=== PATIENT | male | born 1940 | race Caucasian/White ===

== ENCOUNTER 2016-06-17 17:41 | Inpatient (IN) | payer MEDICARE, MEDICAID ==
[2016-06-17] VITALS (7 sets, daily range): BP systolic 64–144; BP diastolic 37–76
[~2016-06-17] VITALS: Ht 175.3 cm; Wt 72.1 kg
[~2016-06-17 17:41] MED LIST: ALBU2.5V13 IH; ASPI81TA2 PO; BISA10SU8 RC; DOCU-270 PO; FURO20TA4 PO; HYDR-3326 PO; IPRA0.2S9 IH; MAG30ORA PO; MAGN400O6 PO; NA P133E RC; OLAN2.5T3 PO; SIMV10TA6 PO; TYL2T PO
--- NOTE | 2016-06-17 17:41 | NUR ---
bb from [facility] for [facility] since this am. pt lethargic, alert, follows commands. rt at bedside. placed in gown and monitor. pending md medina.
[2016-06-17 18:03] LABS: BASOPHILS # (AUTO) 0.1 /CMM (0.0-0.2); BASOPHILS % (AUTO) 0.7 % (0.0-2.0); EOSINOPHILS # (AUTO) 0.2 /CMM (0.0-0.7); EOSINOPHILS % (AUTO) 1.8 % (0.0-6.0); HEMATOCRIT 44 % (39-51); HEMOGLOBIN 14.2 g/dL (13.5-17.5); LYMPHOCYTES # (AUTO) 2.1 /CMM (0.8-4.8); LYMPHOCYTES % (AUTO) 20.4 % (20.0-44.0); MEAN CORPUSCULAR HEMOGLOBIN 27 PG (26.0-33.0); MEAN CORPUSCULAR HGB CONC 32 g/dl (31.0-36.0); MEAN CORPUSCULAR VOLUME 82 fL (80-96); MONOCYTES # (AUTO) 0.8 /CMM (0.1-1.30); MONOCYTES % (AUTO) 7.8 % (2.0-12.0); NEUTROPHILS % (AUTO) 69.3 % (43.0-81.0); PLATELET COUNT (AUTO) 250 /CMM (150-450); RDW COEFFICIENT OF VARIATION 15.4 (11.5-15.0); RED BLOOD CELL COUNT(AUTO) 5.34 MIL/uL (4.5-6.0); WHITE BLOOD COUNT (AUTO) 10.2 K/uL (4.3-11.0)
[2016-06-17 18:13] LABS: CALCIUM, SERUM 8.3 mg/dL (8.5-10.1); CREATININE 1.6 mg/dL (0.6-1.3); POTASSIUM 4.8 mmol/L (3.5-5.1)
[2016-06-17 18:16] LABS: INR 1.23 (0.87-1.13); PROTHROMBIN TIME 12.9 SECS (9.5-12.7)
--- NOTE | 2016-06-17 18:18 | NUR ---
RT NOTE PT PLACED ON BIPAP PER MD ORDER. ALARMS SET PER PROTOCOL AND AUDIBLE. PLUGGED IN TO RED OUTLET. AMBU BAG AT BEDSIDE. Addendum: 06/17/16 at 1819 by JAMES CASTANO RT Amended: Links added.
--- NOTE | 2016-06-17 18:18 | NUR ---
pt placed on bipap 15/5, rr 16, 60% fio2. pt tolerating well.
[2016-06-17 18:21] LABS: TROPONIN I 0.018 ng/mL (0.00-0.056)
[2016-06-17 18:26] LABS: ALBUMIN 3.2 g/dL (3.4-5.0); BILIRUBIN,DIRECT 0.2 mg/dL (0.0-0.2); BILIRUBIN,TOTAL 0.8 mg/dL (0.2-1.0); TOTAL PROTEIN, SERUM 7.9 g/dL (6.4-8.2)
--- NOTE | 2016-06-17 18:28 | NUR ---
urine obtained sent to lab
[2016-06-17 18:33] LABS: LACTIC ACID 0.5 mmol/L (0.4-2.0)
[2016-06-17 18:51] LABS: APPEARANCE,URINE Clear (CLEAR); BILIRUBIN,URINE Negative (NEGATIVE); BLOOD, URINE Negative Ery/uL (NEGATIVE); COLOR,URINE Yellow (YELLOW); KETONES,URINE Negative (NEGATIVE); LEUKOCYTE ESTERASE ,URINE Negative (NEGATIVE); NITRITE, URINE Negative (NEGATIVE); PROTEIN,URINE 100 mg/dl (NEGATIVE); UGLUCOSE Negative (NEGATIVE); UROBILINOGEN,URINE 0.2 EU/dL (0.2)
[2016-06-17 19:13] LABS: ADD URINE CULTURE NO; BACTERIA,URINE Rare /HPF (None Seen); RBC,URINE 0-2 /HPF (0-2); WBC,URINE 1-2/HPF /HPF (0-3)
[2016-06-17 19:14] LABS: MUCUS,URINE Few /LPF (None Seen); SQUAMOUS EPITHELIAL CELL,UR Few /HPF (None Seen); URINE AMORPHOUS URATE Many /HPF (None Seen)
[2016-06-17] MEDS ORDERED: FUROSEMIDE 40 MG/4 ML VIAL IV ONE (19:30)
[2016-06-17] MEDS ORDERED: FUROSEMIDE 40 MG/4 ML VIAL ONE (19:44)
--- NOTE | 2016-06-17 19:50 | NUR ---
lasix 40mg given on the left hand g20.
[2016-06-17 20:16] LABS: ABG BASE EXCESS -2.8 mmol/L; ABG PCO2 95.3 mmHg (35.0-45.0); ABG PO2 93.4 mmHg (75.0-100.0); ABG TOTAL HEMOGLOBIN 14.6 G/dL (13.5-18.0); AaDO2 229.6 mmHg; COHb 1.9 % (0.5-1.5); MetHb 0.5 % (0.0-1.5); O2Hb 92.7 % (94.0-97.0); PEEP,BG 5 cm H2O; SITE, ABG Right Radial
--- NOTE | 2016-06-17 20:20 | NUR ---
DR GOMES ON THE PHONE WITH PT'S NEXT OF KIN.
--- NOTE | 2016-06-17 20:25 | NUR ---
ER MD ORDERED TO PREP PT FOR INTUBATION. RT PAGED FOR INTUBATION.
--- NOTE | 2016-06-17 20:31 | NUR ---
ER MD AT BEDSIDE MIREYA RT, DANA GEE, DANA CARPENTER, MYSELF AT BEDSIDE FOR INTUBATION.
--- NOTE | 2016-06-17 20:38 | NUR ---
INTUBATION TIME, SEE INTUBATION INTERVENTION.
[2016-06-17] MEDS: PROPOFOL 100 ML IV PRN (20:45)
--- NOTE | 2016-06-17 20:45 | NUR ---
AND MD GOMES AT BEDSIDE, PT INTUBATED WITH 7.0 @24CM WITH THE FOLLOWING SETTINGS AC 18R 500VT 100%O2 +5 PEEP, BILATERAL BREATH SOUNDS AND GOOD COLOR CHANGE ON CAP. BILATERAL MOVEMENT PRESENT WELL. PT CUFF INFLATED TO MOV, VENT ALARMS ARE SET AND VENT PLUGGED INTO RED OUTLET. PT SPUTUM SAMPLE WAS COLLECTED AND LAB WAS NOTIFIED. PT PRODUCED LARGE AMOUNTS OF THICK SHORE SECRETIONS. PT TOLERATING SETTINGS NO ADVERSE REACTIONS NOTED. ABG PENDING Addendum: 06/17/16 at 2136 by KENDRICK SMALL Amended: Links added.
--- NOTE | 2016-06-17 20:45 | NUR ---
PT INTUBATED BY DR. GOMES, ET-TUBE 7.0FR, 24CM AT THE LIP LINE WITH (+) COLOR CHANGE ON THE CO2 DETECTOR WITH BILATERAL EQUAL BREATH SOUNDS. PT TOLERATED PROCEDURE WELL. RT TO PLACE PT ON VENT PER ER MD ORDER.
--- NOTE | 2016-06-17 20:47 | NUR ---
RT PLACE PT ON VENT, VENT SETTINGS AC-18, TV-500, FIO2-100%, PPEEP-5. ORAL G-TUBE 18FR INSERTED, F/C 16FR INSERTED PER ER MD ORDER.
--- NOTE | 2016-06-17 21:10 | NUR ---
POST INUBATION CXR DONE.
[2016-06-17] MEDS ORDERED: PIPERACILLIN /TAZOBACTAM 3.375 G in IV D5W 50 ML IV SCH (21:30)
--- NOTE | 2016-06-17 21:36 | NUR ---
PT TOLERATING CURRENT VENT SETTING AT THIS TIME. PENDING HOSPITAL ADMISSION.
--- NOTE | 2016-06-17 21:49 | NUR ---
REPORT CALLED TO DRYER OPERATORDANA PORRAS. ER MD AT BEDSIDE TALKING TO PT FAMILY MEMBERS.
[2016-06-17] MEDS ORDERED: MAGNESIUM HYDROXIDE 30 ML UDC PO PRN (22:00)
[2016-06-17] MEDS ORDERED: ONDANSETRON HCL/PF 4 MG/2 ML VIAL IVP PRN (22:00)
[2016-06-17] MEDS ORDERED: IPRATROPIUM BROMIDE 14 GM INHALER (or 12.9 GM) IH PRN (22:00)
[2016-06-17] MEDS ORDERED: ZOLPIDEM TARTRATE 5 MG TABLET PO PRN (22:00)
[2016-06-17] MEDS ORDERED: IV NS 0.9% 1,000 ML IV PRN (22:00)
[2016-06-17] MEDS ORDERED: Z GUARD REMEDY 2 OZ OINT TP PRN (22:00)
[2016-06-17] MEDS ORDERED: ETOMIDATE 2 MG/ML VIAL IV ONE (22:30)
[2016-06-17] MEDS ORDERED: SUCCINYLCHOLINE CHLORIDE 20 MG/ML VIAL IV ONE (22:30)
[2016-06-17] MEDS ORDERED: PANTOPRAZOLE 40 MG VIAL ONE (22:49)
[2016-06-17] MEDS ORDERED: HEPARIN SODIUM, PORCINE 5000 UNITS/1 ML VIAL ONE (22:50)
[2016-06-17 23:22] LABS: ABG BASE EXCESS 0.7 mmol/L; ABG OXYGEN SATURATION 98.9 % (92.0-98.5); ABG PCO2 82.2 mmHg (35.0-45.0); ABG PO2 217.4 mmHg (75.0-100.0); ABG TOTAL HEMOGLOBIN 14.5 G/dL (13.5-18.0); AaDO2 413.4 mmHg; COHb 1.6 % (0.5-1.5); MetHb 0.9 % (0.0-1.5); O2Hb 96.4 % (94.0-97.0); PEEP,BG 5 cm H2O; SITE, ABG Right Radial; VT, ABG 500 mL
[2016-06-17] MEDS: PANTOPRAZOLE 40 MG VIAL IV SCH (23:32)
[2016-06-17] MEDS: HEPARIN SODIUM, PORCINE 5000 UNITS/1 ML VIAL SQ SCH (23:33)
--- NOTE | 2016-06-17 23:51 | NUR ---
FINANCE PROFESSOR. ADMISSION.RECWEIVED THE PT FROMER VIA JASON.DIAGNOSED WITHRESPIRATORY FAILURE, ORALLY INTUBATED. SEDATED WITH DIPRIVAN.ETT #7, LIP 24CMS,AC 22,TV 500, PEEP 5. SAT 98 %.NOACUTE DISTRESS NOTED.IV RT AC 14G DIPRIVAN 20MCG/KG/MIN.OGT INTACT.NPO.DANIELLE SOFT WRIST RESTRAINT.CHECKED AND RELEASED.NOINJUEY OR REDNESS NOTED.BRANCH STORE MANAGER SHOWING A FLUTTER FC PATENT.HOB ELEAVTED.AFEBRILE. WILL CONTINUE TO MONITOR VITALS.
--- NOTE | 2016-06-17 23:58 | NUR ---
CURLING MACHINE OPERATOR.POST INTUBATION ABG DONE. REJI KIRAN SO THE RESULT. CHANGED VENT SETTINGS.
[2016-06-18] VITALS (83 sets, daily range): BP systolic 59–182; BP diastolic 34–92
--- NOTE | 2016-06-18 00:21 | NUR ---
CLOUD SYSTEMS ARCHITECT.CALLED [facility]. FOR ZOSYN DOSE. TORSTEN ORDERED ZOSYN 2~25G IV Q6H.
[2016-06-18] MEDS ORDERED: ATROPINE SULFATE 1 MG/10 ML DISP.SYRIN ONE (00:34)
[2016-06-18] MEDS ORDERED: NOREPINEPHRINE 4 MG/4 ML AMPUL IV ONE (00:40)
[2016-06-18] MEDS ORDERED: IV D5W 500 ML IV ONE (00:40)
[2016-06-18] MEDS ORDERED: IV SET PRIMARY PUMP SET 1 EA INFUS.SET MC ONE ×3 (00:41→12:01)
--- NOTE | 2016-06-18 00:46 | NUR ---
INTERACTIVE MEDIA PROJECT MANAGER. PT HEART RATE WENT DOWN 51. BP 50/44.CALLED [facility]RI[facility]. NEW ORDER RECEIVED.
--- NOTE | 2016-06-18 00:50 | NUR ---
RADIATOR CORE TESTER - QIANA NGUYEN MATHEMATICS DEPARTMENT CHAIR ORDERED LEVOPHED GTT. DS. LEVOPHED GTT. MIXED & ADM. FOR SBP'S IN THE 50-60'S. LEVOPHED GTT. STARTED AT 15MCG/MIN & TITRATED UP TO 20MCG/MIN. SBP'S SLOWLY INCREASED TO 130'S. LEVOPHED IS SLOWLY BEING WEANED DOWN NOW. DIPRIVAN GTT. HAS BEEN OFF SINCE 00:40 AM. QIANA N.PAly AT BS. CONT. POC. Addendum: 06/18/16 at 0755 by BRIGETTE KRISHNAN RN THE STRENGTH OF LEVOPHED GTT UPON TIME OF ADM. WAS 8 MG/500CC. QIANA NGUYEN ORDERED 16MG/500CC, BUT ONLY 2 VIALS OF 4MG WERE RETRIEVED FROM [facility] & MIXED IN D5W 500 CC. I SPOKE WITH PHARMACIST THIS AM & EXPLAINED SITUATION. QIANA MENDOZA WAS NOTIFIED OF CHANGE, HOWEVER THE 16 MG WASN'T DC'D. SBP'S WERE CORRECTED ON 8MG/500 D5W. LEVOPHED BAG WAS LABELED PROPERLY.
[2016-06-18] MEDS ORDERED: NOREPINEPHRINE 16 MG in IV D5W 500 ML IV PRN (01:00)
[2016-06-18] MEDS ORDERED: ATROPINE SULFATE 1 MG/10 ML DISP.SYRIN IV ONE (01:00)
[2016-06-18] MEDS ORDERED: PIPERACILLIN /TAZOBACTAM 2.25 G VIAL IV ONE (01:32)
[2016-06-18] MEDS ORDERED: IV D5W 50 ML IV ONE (01:33)
--- NOTE | 2016-06-18 03:00 | NUR ---
A AND P MECHANIC - PT. WAS ADM. ZOSYN 3.375 GM IVPB AT 21:30 PM. QIANA NGUYEN PACKAGING MANAGER ORDERED STAFF FOR NEXT DOSE OF ZOSYN TO BE AT 3AM & CHANGED DOSAGE TO 2.25GM. PHARMACY DOSED PT. & PLACED NEXT TIME OF ADM. AT 06:00AM. REVIEWED 6AM ORDER W/QIANA PACKAGING MANAGER AGAIN & SHE REINFORCED ORDER FOR NEXT DOSE OF ZOSYN TO BE ADM. AT 3AM. DONE. DOCUMENTED.
[2016-06-18 04:35] LABS: BASOPHILS % (AUTO) 0.2 % (0.0-2.0); EOSINOPHILS % (AUTO) 0.2 % (0.0-6.0); HEMATOCRIT 43 % (39-51); HEMOGLOBIN 13.5 g/dL (13.5-17.5); LYMPHOCYTES # (AUTO) 1.3 /CMM (0.8-4.8); LYMPHOCYTES % (AUTO) 6.9 % (20.0-44.0); MEAN CORPUSCULAR HEMOGLOBIN 26 PG (26.0-33.0); MEAN CORPUSCULAR HGB CONC 32 g/dl (31.0-36.0); MEAN CORPUSCULAR VOLUME 83 fL (80-96); MONOCYTES # (AUTO) 1.2 /CMM (0.1-1.30); MONOCYTES % (AUTO) 6.7 % (2.0-12.0); NEUTROPHILS # (AUTO) 15.8 /CMM (1.8-8.9); PLATELET COUNT (AUTO) 278 /CMM (150-450); RDW COEFFICIENT OF VARIATION 16.1 (11.5-15.0); RED BLOOD CELL COUNT(AUTO) 5.11 MIL/uL (4.5-6.0); WHITE BLOOD COUNT (AUTO) 18.4 K/uL (4.3-11.0)
--- NOTE | 2016-06-18 04:49 | NUR ---
ICURN. AM CARE.ORALCARE. BED BATH GIVEN.LINEN CHANGED. REMAINING SAME VENT SETTING TOLERATED WELL. SAT 98 %.NO ACUTE DISTRESS NOTED.BORDER MEASURER SHOWING AFLUTTER.IV RT AC 14G. LEVOPHED 10MCG/MIN, IVF NS50ML/H.FC PATENT. DANIELLE SOFT WRIST RESTRAINT CHECKED AND RELEASED.NO INJURY OR REDNESS NOTED.AFEBRILE. HOB ELEVATED.OGT CLAMPED. TURN AND REPOSITION Q2H.WILL CONTINUE TO MONITOR VITALS.
[2016-06-18 05:00] LABS: CALCIUM, SERUM 8.4 mg/dL (8.5-10.1); CREATININE 2.1 mg/dL (0.6-1.3); MAGNESIUM 1.9 mg/dL (1.8-2.4); PHOSPHORUS 2.9 mg/dL (2.5-4.9); POTASSIUM 4.6 mmol/L (3.5-5.1)
[2016-06-18 05:23] LABS: ANISOCYTOSIS 1+; BAND % (MANUAL) 16 % (0.0-5.0); BASOPHILS % (MANUAL) 0 % (0.0-2.0); EOSINOPHILS % (MANUAL) 0 % (0-4); LYMPHOCYTES % (MANUAL) 6 % (16-48); MONOCYTES % (MANUAL) 9 % (0-11.0); NEUTROPHILS % (MANUAL) 69 (42-76); PLATELET ESTIMATE ADEQUATE
[2016-06-18] MEDS ORDERED: PIPERACILLIN /TAZOBACTAM 2.25 G in IV D5W 50 ML IV SCH (06:00)
[2016-06-18] MEDS: PANTOPRAZOLE 40 MG TABLET.DR PO SCH (07:30)
[2016-06-18] MEDS: NOREPINEPHRINE 16 MG in IV D5W 500 ML IV PRN ×2 (07:32→08:43)
--- NOTE | 2016-06-18 07:54 | NUR ---
WOUND CARE CONSULT: PT NOT SEEN YET FOR SKIN ASSESSMENT DUE TO PT RESTLESS AT THIS TIME AND INTUBATED. SANTOS SCORE IS 14. PT ON COMFORT GEL MATTRESS. PT TO BE TURNED AND REPOSITIONED EVERY 2 HRS PT CONDITION PERMITS, HEELS FLOATED. ALL SKIN PROTECTION MEASURES IN PLACE AND DISCUSSED WITH NURSING STAFF. MD IN AGREEMENT WITH PLAN OF CARE.
[2016-06-18] MEDS ORDERED: NOREPINEPHRINE 8 MG in IV D5W 500 ML IV ONE (08:00)
--- NOTE | 2016-06-18 08:00 | NUR ---
RN EMBEDDED NOTE: RECEIVED PATIENT INTUBATED WITH ETT 7.0 24CMS AT THE LIP. WITH VENT SETTINGS AC 22 TV 500 FIO2 50% AND PEEP OF 5, CHECKED AND VERIFIED, PATIENT TOLERATING SETTINGS WELL. PATIENT NOTED TO BE ALERT AND ORIENTED TO SELF. ABLE TO FOLLOW COMMANDS. ORAL AND ETT INLINE SUCTIONED. PATIENT NOTED WITH A LARGE AMOUNT OF SECRETIONS. AFLUTTER ON MONITOR HR 70. NOTED WITH OGTUBE CLAMPED, CUADRA DRAINING TO GRAVITY. RAC 16G AND LHAND 20G NOTED WITH NS AT 50ML/HR AND LEVOPHED SINGLE CONCENTRATION AT 10MCG/MIN VSS AT THIS TIME, WILL TITRATE PER PROTOCOL PATIENT'S CONDITION PERMITS. PATIENT NOTED WITH BILATERAL SOFT WRIST RESTRAINTS. TEMP NOTED TO BE 101.7. COOLING MEASURES OBSERVED. TYLENOL ADMINISTERED. COOLING BLANKET PLACED ON PATIENT. SAFETY MEASURES OBSERVED. SKIN AND CIRCULATION CHECKS DONE. ONGOING MONITORING.
--- NOTE | 2016-06-18 08:05 | NUR ---
EMERGENCY ROOM PHYSICIAN ASSISTANT NOTE: PATIENT NOTED TO BE VERY ALERT AND AGITATED. DIPRIVAN INITIATED AT 5MCG/KG/MIN AND WILL TITRATE TO KEEP PATIENT CALM AND COOPERATIVE. BP STABLE AT THIS TIME. ONGOING MONITORING.
[2016-06-18] MEDS: FUROSEMIDE 20 MG TABLET PO SCH ×2 (08:10→08:44)
[2016-06-18] MEDS: ACETAMINOPHEN 325 MG TABLET PO PRN (08:10)
[2016-06-18] MEDS: ASPIRIN 81 MG TAB.CHEW PO SCH (08:10)
[2016-06-18] MEDS: HEPARIN SODIUM, PORCINE 5000 UNITS/1 ML VIAL SQ SCH (08:11)
--- NOTE | 2016-06-18 08:30 | NUR ---
STATISTICAL ASSISTANT NOTE: HR NOTED TO BE 47 BPM HOWEVER FLUCTUATES BACK TO 70 BPM, DR. RALPH MADE AWARE. RECEIVED ORDER TO REMOVE CRASH CART FROM ROOM AT THIS TIME. ONGOING MONITORING.
--- NOTE | 2016-06-18 08:45 | NUR ---
CONCENTRATOR OPERATOR NOTE: PER ORDER, LEVOPHED 16MG DOUBLE CONCENTRATION IS ADMINISTERED AT 6MCG/MIN. BP NOTED TO BE 98/57. WILL TITRATE PRESSOR PER PROTOCOL PATIENTS CONDITION PERMITS. ONGOING MONITORING.
[2016-06-18] MEDS: OLANZAPINE 2.5 MG TABLET PO SCH ×3 (09:00→22:08)
[2016-06-18] MEDS: FUROSEMIDE 100 MG/10 ML VIAL IV SCH ×3 (09:00→16:10)
[2016-06-18 09:04] LABS: TROPONIN I 0.031 ng/mL (0.00-0.056)
[2016-06-18 09:11] LABS: THYROID STIMULATING HORMONE 0.642 uIU/mL (0.358-3.74)
[2016-06-18] MEDS ORDERED: IPRATROPIUM NEB FS 0.5 MG/2.5 ML AMPUL.NEB NEB PRN (11:00)
[2016-06-18] MEDS ORDERED: BUMETANIDE INJ 4 MG in IV NS 0.9% 24 ML IV ONE (11:00)
[2016-06-18] MEDS: PROPOFOL 100 ML IV PRN ×2 (11:29→22:49)
--- NOTE | 2016-06-18 11:45 | NUR ---
WOUND CARE CONSULT: PT PRESENTS WITH INTACT SKIN. CONTINUE ALL SKIN PROTECTION MEASURES. DISCUSSED WITH NURSING STAFF. WILL SEE PRN.
[2016-06-18 11:59] LABS: ABG BASE EXCESS 0.6 mmol/L; ABG OXYGEN SATURATION 95.9 % (92.0-98.5); ABG PCO2 37.4 mmHg (35.0-45.0); ABG PH 7.435 (7.350-7.450); ABG TOTAL HEMOGLOBIN 13.3 G/dL (13.5-18.0); AaDO2 233.4 mmHg; MetHb 0.8 % (0.0-1.5); O2Hb 94.2 % (94.0-97.0); PEEP,BG 5 cm H2O; SITE, ABG Right Radial; VT, ABG 500 mL
[2016-06-18] MEDS ORDERED: IV NS 0.9% 500 ML IV ONE ×3 (12:00→12:37)
[2016-06-18] MEDS: PIPERACILLIN /TAZOBACTAM 2.25 G in IV D5W 50 ML IV SCH ×3 (13:23→23:43)
--- NOTE | 2016-06-18 14:00 | NUR ---
ASSISTANT READING TEACHER NOTE: PATIENT NOTED WITH VERY LABILE BLOOD PRESSURES. DR. MIRANDA AT BEDSIDE MADE AWARE. RECEIVED ORDER FOR RYLAND INSERTION. SETUP PREPARED. RIGHT RADIAL RYLAND PLACED BY DR. MIRANDA. BLOOD PRESSURE CONTINUES TO BE LABILE CONSISTENT WITH RYLAND PRESSURES. PICC LINE NURSE SHYANN AT BEDSIDE FOR PICC LINE INSERTION. PICC LINE PLACED IN [facility] PICC. PATIENT TOLERATED PROCEDURES WELL. ONGOING MONITORING.
[2016-06-18] MEDS ORDERED: APIXABAN 2.5 MG TABLET NG SCH (17:00)
[2016-06-18] MEDS: RIVAROXABAN 15 MG TABLET PO SCH (18:09)
--- NOTE | 2016-06-18 18:50 | NUR ---
MANAGER SKILLED NOTE: PATIENT IS CURRENTLY SEDATED ON 15MCG/KG/MIN OF DIPRIVAN. ETT 7 AND 24CMS AT THE LIP. TOLERATING VENT SETTINGS WELL, SUCTIONED Q2H WITH LARGE AMOUNT OF SECRETIONS NOTED. SURESH PICC LINE RUNNING DIPRIVAN AND LEVOPHED AT 1MCG/MIN. PATIENT NOTED WITH VERY LABILE PRESSURES CURRENTLY RIGHT RADIAL RYLAND BP NOTED TO BE 92/36. TITRATING LEVOPHED WITH RYLAND PRESSURES TO KEEP SBP>90. HR NOTED TO BE [address] BUTT AWARE. NO DISTRESS NOTED AT THIS TIME. OGTUBE IN PLACE AND CLAMPED. PATIENT NOTED WITH CORE TEMP OF 99.1. NOTED WITH LOW URINE OUTPUT, DR. MIRANDA AWARE. SKIN NOTED TO BE INTACT. 1ST STEP MATTRESS IN PLACE. PATIENT TURNED AND REPOSITIONED AND EXTREMITIES OFFLOADED. BILATERAL SOFT WRIST RESTRAINTS, SKIN AND CIRCULATION CHECK NOTED. SAFETY MEASURES OBSERVED. WILL ENDORSE FOR CONTINUITY OF CARE.
--- NOTE | 2016-06-18 19:39 | NUR ---
ICU/RN RECEIVED PT ON VENT VIA ORAL ETT ON 40% FI02 SAT.99%.ON DIPRIVAN DRIP AT 15MCG/MIN.DECREASED TO 10MCG/KG/MIN,GOT AGITATED AFTER 5MIN.DIPRIVAN INCREASED TO 15MGMCG/MIN.PTDOES OPEN EYES TRACKS ,DOES NOT FOLLOW COMMANDS.ON LEVOPHED DRIP AT 2MCG/MIN,BP LABILE RUNS FROM 110'S TO 170MMHG THEN DROPS TO 90'S W/IN SECONDS.A-LINE CALIBRATED AND ZEROED.MONITOR SHOWS A-FLUTTER 40'S.
[2016-06-18] MEDS ORDERED: SIMVASTATIN 10 MG TABLET PO SCH (22:00)
[2016-06-18] MEDS: PANTOPRAZOLE 40 MG VIAL IV SCH (22:08)
[2016-06-19] VITALS (79 sets, daily range): BP systolic 81–152; BP diastolic 37–79
--- NOTE | 2016-06-19 02:00 | NUR ---
ICU/RN VSL=[id number] W/ LEVOPHED RUNNING AT 3MCG/MIN.
--- NOTE | 2016-06-19 03:00 | NUR ---
ICU/RN LEVOPHED INCREASED TO 3MCG/KG/MIN SBP=81-86MMHG,WILL CONTINUE TO MONITOR BP CLOSELY, , Addendum: 06/19/16 at 0403 by ABILIO POTTS RN ENTERED WRONG TIME W/C SHOULD BE 0100
[2016-06-19 04:40] LABS: EOSINOPHILS # (AUTO) 0.4 /CMM (0.0-0.7); EOSINOPHILS % (AUTO) 2.1 % (0.0-6.0); HEMATOCRIT 39 % (39-51); HEMOGLOBIN 12.6 g/dL (13.5-17.5); LYMPHOCYTES % (AUTO) 11.7 % (20.0-44.0); MEAN CORPUSCULAR HEMOGLOBIN 26 PG (26.0-33.0); MEAN CORPUSCULAR HGB CONC 32 g/dl (31.0-36.0); MEAN CORPUSCULAR VOLUME 82 fL (80-96); MONOCYTES # (AUTO) 1.2 /CMM (0.1-1.30); MONOCYTES % (AUTO) 7.2 % (2.0-12.0); NEUTROPHILS # (AUTO) 13.5 /CMM (1.8-8.9); PLATELET COUNT (AUTO) 261 /CMM (150-450); RDW COEFFICIENT OF VARIATION 16.8 (11.5-15.0); RED BLOOD CELL COUNT(AUTO) 4.78 MIL/uL (4.5-6.0); WHITE BLOOD COUNT (AUTO) 17.1 K/uL (4.3-11.0)
[2016-06-19 05:26] LABS: CALCIUM, SERUM 8.2 mg/dL (8.5-10.1); CREATININE 2.7 mg/dL (0.6-1.3); POTASSIUM 4.1 mmol/L (3.5-5.1)
[2016-06-19] MEDS ORDERED: SECONDARY IV SET 1 EA INFUS.SET MC ONE (05:53)
[2016-06-19] MEDS: PIPERACILLIN /TAZOBACTAM 2.25 G in IV D5W 50 ML IV SCH ×3 (05:58→17:21)
[2016-06-19] MEDS: PROPOFOL 100 ML IV PRN ×2 (05:59→13:08)
[2016-06-19] MEDS ORDERED: IV SET PRIMARY PUMP SET 1 EA INFUS.SET MC ONE ×3 (06:12→21:00)
--- NOTE | 2016-06-19 07:06 | NUR ---
ICU/RN REMAINS ON DIPRIVAN DRIP AT 20MCG/KG/MIN.OPENS EYES TO TACTLE STIMULATION.BP STABLE BP >100MMHG.CONTINUES TO SUCTION BLOOD-TINGED TO SHORE SECRETIONS.ORAL CARE DONE,DROOLS A LOT OF SALIVA.
[2016-06-19] MEDS: FUROSEMIDE 20 MG TABLET PO SCH (09:20)
[2016-06-19] MEDS: ASPIRIN 81 MG TAB.CHEW PO SCH (09:20)
[2016-06-19] MEDS: OLANZAPINE 2.5 MG TABLET PO SCH ×3 (09:21→21:17)
[2016-06-19] MEDS: PANTOPRAZOLE 40 MG TABLET.DR PO SCH (09:21)
--- NOTE | 2016-06-19 10:30 | NUR ---
PT MAINTAINS BP > 90 VIA RYLAND AND NIBP CUF. LEVOPHED TITRATED OFF.
--- NOTE | 2016-06-19 11:30 | NUR ---
PT TITRATED OFF PROPOFOL. AWAKE COOPERATIVE WILL PUT ON CPAP ORDERED.
--- NOTE | 2016-06-19 12:10 | NUR ---
PT UNABLE TO TOLERATE CPAP SETTINGS, SAT 86-88% AND RR> 40 DR GUTIERREZ NOTIFIED AND PT PLACED BACK ON AC MODE WITH PREVIOUS SETTINGS
[2016-06-19] MEDS: IV 1/2NS 1000 ML 1,000 ML IV PRN (13:07)
--- NOTE | 2016-06-19 13:30 | NUR ---
PT'S BP IS MAINTAINING IN 80TH. LEVOPHED RESTARTED AT 3 MICS
[2016-06-19] MEDS: RIVAROXABAN 15 MG TABLET PO SCH (17:21)
--- NOTE | 2016-06-19 18:13 | NUR ---
RT END OF THE SHIFT REPORT: PT. 76 Y OLD MALE REMAIN ORALLY INTUBATED ETT #7.0 @ 24CM LIP ON VENT WITH NOTED SETTING, ALARMS ARE SET AND FUNCTIONAL, NO DISTRESS NOTED T/O SHIFT, VENT PLUGGED INTO RED OUTLET EQUAL CHEST RISE NOTED SALINAS'X FOR MINIMAL WHITE SECRETIONS, B/S BILATERALLY RALES. (WEANING TRY T/O SHIFT FAIL AND PLACED BACK ON AC MODE PER MD ORDER), HME CHANGED AMBU BAG REMAIN AT THE BEDSIDE. REPORT WILL PASS ON TO PM SHIFT Addendum: 06/19/16 at 1814 by REILLY GREGORIO RT Amended: Links added.
[2016-06-19] MEDS: PANTOPRAZOLE 40 MG VIAL IV SCH (21:16)
--- NOTE | 2016-06-19 21:35 | NUR ---
PT INTUBATED WITH 7.0 ETT SECURED AT 24CM AT THE LIP. PT TOLERATING VENT SETTINGS. SX'D FOR MOD AMT OF THICK WHITE SECRETIONS. VENT ALARMS SET AND AUDIBLE. AMBU BAG AT BEDSIDE. VENT PLUGGED INTO RED OUTLET. WILL CONTINUE TO MONITOR. Addendum: 06/19/16 at 2136 by SHELBY REID RT Amended: Links added.
[2016-06-20] VITALS (53 sets, daily range): BP systolic 84–131; BP diastolic 37–66
[2016-06-20] MEDS: PIPERACILLIN /TAZOBACTAM 2.25 G in IV D5W 50 ML IV SCH ×5 (00:59→23:56)
[2016-06-20] MEDS: PROPOFOL 100 ML IV PRN ×3 (02:40→17:38)
[2016-06-20] MEDS ORDERED: IV NS 0.9% 500 ML IV ONE ×2 (04:40→23:26)
[2016-06-20 05:21] LABS: CALCIUM, SERUM 8.2 mg/dL (8.5-10.1); CREATININE 2.6 mg/dL (0.6-1.3); MAGNESIUM 2.1 mg/dL (1.8-2.4); PHOSPHORUS 3.7 mg/dL (2.5-4.9); POTASSIUM 3.9 mmol/L (3.5-5.1)
[2016-06-20 05:25] LABS: BASOPHILS % (AUTO) 0.2 % (0.0-2.0); EOSINOPHILS # (AUTO) 0.4 /CMM (0.0-0.7); EOSINOPHILS % (AUTO) 3.2 % (0.0-6.0); HEMATOCRIT 39 % (39-51); HEMOGLOBIN 12.3 g/dL (13.5-17.5); LYMPHOCYTES # (AUTO) 1.8 /CMM (0.8-4.8); LYMPHOCYTES % (AUTO) 15.3 % (20.0-44.0); MEAN CORPUSCULAR HEMOGLOBIN 26 PG (26.0-33.0); MEAN CORPUSCULAR HGB CONC 32 g/dl (31.0-36.0); MEAN CORPUSCULAR VOLUME 82 fL (80-96); MONOCYTES # (AUTO) 0.7 /CMM (0.1-1.30); MONOCYTES % (AUTO) 6.1 % (2.0-12.0); NEUTROPHILS # (AUTO) 8.9 /CMM (1.8-8.9); NEUTROPHILS % (AUTO) 75.2 % (43.0-81.0); PLATELET COUNT (AUTO) 214 /CMM (150-450); RDW COEFFICIENT OF VARIATION 16.7 (11.5-15.0); RED BLOOD CELL COUNT(AUTO) 4.68 MIL/uL (4.5-6.0); WHITE BLOOD COUNT (AUTO) 11.8 K/uL (4.3-11.0)
--- NOTE | 2016-06-20 05:30 | NUR ---
UNIFIED COMMUNICATIONS ENGINEER - REC'D PT.VENTED,RESTRAINED & SEDATED ON DIPRIVAN GTT. AT 20 MCG/MIN. PT'S DAUGHTER HERE LAST NIGHT. WE SHUT DIPRIVAN OFF FOR SEDATION VACATION, WHILE DAUGHTER - VÍCTOR TALKED W/PT. IN [place] LANG[place]AGE. PT. WOKE UP IMMEDIATELY AFTER 2 AND 1/2MIN. HE COULD NOD HEAD & STARTED TO BECOME RESTLESS. PT.PLACED BACK ON SEDATION AFTER A MIN. PLAN FOR TODAY IS TO WEAN AGAIN. BILAT.SOFT WRIST RESTRAINTS ARE INTACT. SKIN INTACT. RT.RADIAL RYLAND HAS SBP'S IN THE 100'S WHILE SBP'S ARE IN THE 90'S. LEVOPHED GTT. REMAINS OFF. NEW PRESSURE BAG HUNG. ALL PULSES PALPABLE X 4 EXT. CUADRA CATH TO GRAVITY. OGT-CLAMPED. OGT HAD TO BE EXCELLED IN BY 2 CM FOR GOOD AUSC/PLACEMENT CHECK. COMP.BEDBATH ADM. W/ORAL,VENT,SULY & SKIN CARE ADM. CONT.POC.
[2016-06-20] MEDS: IV 1/2NS 1000 ML 1,000 ML IV PRN (05:55)
--- NOTE | 2016-06-20 08:00 | NUR ---
ICU/RN INITIAL NOTES,AM RECEIVED REPORT FROM NIGHT NURSE. PT FOLLOWS COMMANDS, RESPONDS TO STIMULI, HOWEVER SEDATED ON DIPRIVAN. PT ON VENT SETTINGS ORDERED BY MD, NO ACUTE DISTRESS NOTED AT THIS TIME.ETT 7.0 24@ THE LIP. LARGE AMOUNTS OF SECRETIONS NOTED. PT FAILED WEENING YESTERDAY, WILL REATTEMPT TOMORROW PER . PT ON TELEZain. OG IN PLACE, CLAMPED AT THIS TIME. PLACEMENT CHECKED. RIGHT RADIAL ART LINE IN PLACE, ZEROED AND CALIBRATED, RIGHT UPPER ARM PICC LINE PATENT AND INTACT, NO S/S OF INFECTION OR INFILTRATION NOTED, IV FLUIDS INFUSING ORDERED. CUADRA DRAINING YELLOW URINE. SKIN INTACT, WILL CONTINUE TO TURN AND REPOSITION Q 2 HOURS AND NEEDED.
--- NOTE | 2016-06-20 09:20 | NUR ---
ICU/RN: PT SEEN AND ASSESSED BY , ORDERS RECEIVED FOR WEENING TRIAL IN THE AM 06/21. ALL NEEDS WILL BE MET, SAFETY MEASURERS TAKEN, WILL CONTINUE TO MONITOR.
[2016-06-20] MEDS: OLANZAPINE 2.5 MG TABLET PO SCH ×3 (09:21→21:27)
[2016-06-20] MEDS: FUROSEMIDE 20 MG TABLET PO SCH (09:21)
[2016-06-20] MEDS: ASPIRIN 81 MG TAB.CHEW PO SCH (09:21)
[2016-06-20] MEDS ORDERED: IV SET PRIMARY PUMP SET 1 EA INFUS.SET MC ONE ×2 (09:36→23:26)
[2016-06-20] MEDS: FUROSEMIDE 40 MG/4 ML VIAL IV SCH ×2 (09:41→16:18)
[2016-06-20] MEDS: IPRATROPIUM NEB FS 0.5 MG/2.5 ML AMPUL.NEB NEB SCH ×2 (14:00→19:49)
[2016-06-20] MEDS: methylPREDNISolone SOD SUCC 125 MG/2ML VIAL IV SCH ×2 (16:18→18:38)
[2016-06-20] MEDS: RIVAROXABAN 15 MG TABLET PO SCH (16:19)
[2016-06-20 18:37] LABS: CREATININE, URINE 29.1 MG/DL (30.0-125.0)
--- NOTE | 2016-06-20 18:54 | NUR ---
ICU/RN ENDING NOTES,AM REPORT WILL BE ENDORSED TO NIGHT NURSE FOR CONTINUATION OF CARE. ALL NEEDS MET. PT ON VENT SETTINGS ORDERED BY MD, NO ACUTE DISTRESS NOTED. ON TELE, OSCAR [place]. PT CONTINUES TO BE ON 20MCG OF DIPRIVAN FOR SEDATION. DURING SEDATION VACATION PT FOLLOW COMMANDS, OPENS EYES. PT TURNED AND REPOSITIONED, BED BATH GIVEN. ALL NEEDS ATTENDED TO, BED IN LOW POSITION, SIDE RAILS UP, CALL LIGHT WITHIN REACH. WILL CONTINUE CARE. ORDERS PLACED FOR WEENING IN AM. WILL ENDORSE.
[2016-06-20] MEDS: ALBUTEROL FS 2.5 MG/3 ML VIAL.NEB NEB PRN (19:49)
--- NOTE | 2016-06-20 19:55 | NUR ---
ICU/BRICK CLEANER REPARATORY THERAPIST IN ROOM, PT WAS SUCTIONED THEN GIVEN BREATHING TREATMENT. PT TOLERATED THIS WELL. SATURATION CONTINUES TO 97-98% ON CURRENT VENT SETTINGS. NOTED THICK SECRETIONS.
[2016-06-20] MEDS: PANTOPRAZOLE 40 MG VIAL IV SCH (21:26)
[2016-06-20] MEDS ORDERED: IV NS 0.9% 250 ML IV ONE (23:26)
[2016-06-21] VITALS (41 sets, daily range): BP systolic 88–123; BP diastolic 41–80
[2016-06-21] MEDS: PROPOFOL 100 ML IV PRN
[2016-06-21] MEDS: IPRATROPIUM NEB FS 0.5 MG/2.5 ML AMPUL.NEB NEB SCH ×4 (01:22→19:30)
--- NOTE | 2016-06-21 01:35 | NUR ---
ICU/TELEVISION ANCHOR REPARATORY THERAPIST IN ROOM, PT WAS SUCTIONED THEN GIVEN BREATHING TREATMENT. PT TOLERATED THIS WELL. SATURATION CONTINUES TO 97-98% ON CURRENT VENT SETTINGS. NOTED THICK SECRETIONS.
--- NOTE | 2016-06-21 02:55 | NUR ---
ICU/PERFECT BIND MACHINE OPERATOR PT WAS GIVEN AM CARE, ALONG WITH ORAL CARE PROVIDED AT THIS TIME. PT TOLERATED THIS WELL. PT REMAINS ON CURRENT VENT SETTINGS AT 97-98%. PT WAS TURNED AND REPOSITIONED FOR COMFORT AND CARE. NO ACUTE DISTRESS SEEN, WILL MONITOR THIS PT.
[2016-06-21] MEDS: PIPERACILLIN /TAZOBACTAM 2.25 G in IV D5W 50 ML IV SCH ×3 (04:52→17:02)
[2016-06-21 05:16] LABS: CALCIUM, SERUM 7.9 mg/dL (8.5-10.1); CREATININE 2.6 mg/dL (0.6-1.3); EOSINOPHILS % (AUTO) 0.2 % (0.0-6.0); HEMATOCRIT 42 % (39-51); HEMOGLOBIN 13.3 g/dL (13.5-17.5); LYMPHOCYTES # (AUTO) 0.7 /CMM (0.8-4.8); LYMPHOCYTES % (AUTO) 10.9 % (20.0-44.0); MEAN CORPUSCULAR HEMOGLOBIN 26 PG (26.0-33.0); MEAN CORPUSCULAR HGB CONC 32 g/dl (31.0-36.0); MEAN CORPUSCULAR VOLUME 82 fL (80-96); MONOCYTES % (AUTO) 0.4 % (2.0-12.0); NEUTROPHILS # (AUTO) 5.5 /CMM (1.8-8.9); NEUTROPHILS % (AUTO) 88.5 % (43.0-81.0); PHOSPHORUS 6.2 mg/dL (2.5-4.9); PLATELET COUNT (AUTO) 232 /CMM (150-450); POTASSIUM 3.7 mmol/L (3.5-5.1); RED BLOOD CELL COUNT(AUTO) 5.12 MIL/uL (4.5-6.0); WHITE BLOOD COUNT (AUTO) 6.2 K/uL (4.3-11.0)
--- NOTE | 2016-06-21 07:54 | NUR ---
INITIAL ICU NOTE RCVD PT SEDATED ON DIPRIVAN, ABLE TO OPEN EYES, BUT NOT FOLLOW COMMANDS. AFLUTTER ON TELE HR 52. ETT 7.0 24 AT LIP. TOLERATING ORDERED VENT SETTINGS. OGT PLACEMENT VERIFIED AND CLAMPED. BILATERAL WRISTS RESTRAINTS IN PLACE. CIRCULATION CHECKS PERFORMED. CUADRA DRAINING CLEAR, YELLOW URINE. RIGHT RADIAL ARTERY LINE ZEROED AND CALIBRATED. SURESH PICC C/D/I/PATENT NO S/O INFILTRATION OR PHLEBITIS OBSERVED UPON FLUSHING. POSSIBLE WEANING THIS AM. WILL CONTINUE TO MONITOR FOR SAFETY AND COMFORT. BED IN LOW AND LOCKED POSITION. CALL LIGHT WITHIN REACH.
[2016-06-21] MEDS: methylPREDNISolone SOD SUCC 125 MG/2ML VIAL IV SCH ×2 (08:40→17:01)
[2016-06-21] MEDS: OLANZAPINE 2.5 MG TABLET PO SCH ×3 (08:40→22:04)
[2016-06-21] MEDS: ASPIRIN 81 MG TAB.CHEW PO SCH (08:40)
--- NOTE | 2016-06-21 09:20 | NUR ---
pt received on ac 22, vt 500, fio2 40%, no peep. Addendum: 06/21/16 at 0920 by TERI NIELSON RT Amended: Links added.
[2016-06-21] MEDS: ALBUTEROL FS 2.5 MG/3 ML VIAL.NEB NEB PRN ×3 (09:29→19:30)
--- NOTE | 2016-06-21 09:40 | NUR ---
MOTHERS HELPER NOTE PT OFF SEDATION. RT AT BEDSIDE WEANING PT, SO FAR TOLERATING SIMV MODE. WILL CONTINUE TO MONITOR.
--- NOTE | 2016-06-21 09:42 | NUR ---
weaning started per md order. simv 4, ps 12, vt 500, fio2 40%, peep +5 Addendum: 06/21/16 at 0945 by TERI NIELSON RT Amended: Links added.
[2016-06-21] MEDS ORDERED: DC PROPOFOL WHEN EXTUBATED XX PRN (10:00)
[2016-06-21 10:44] LABS: ABG BASE EXCESS -1.5 mmol/L; ABG OXYGEN SATURATION 96.8 % (92.0-98.5); ABG PCO2 41.2 mmHg (35.0-45.0); ABG PH 7.376 (7.350-7.450); ABG PO2 102.5 mmHg (75.0-100.0); AaDO2 135.3 mmHg; MetHb 0.8 % (0.0-1.5); O2Hb 95.1 % (94.0-97.0); PEEP,BG 5 cm H2O; SITE, ABG A-Line; VENT MODE, BG SIMV 4/ PS 12; VT, ABG 500 mL
--- NOTE | 2016-06-21 12:15 | NUR ---
CLUTCH REBUILDER NOTE PT EXTUBATED BY RT, TOLERATING 3L VIA NC WELL, SHOWING NO S/O DISTRESS. RESPIRATIONS EVEN AND NON-LABORED. WILL CONTINUE TO MONITOR. Addendum: 06/21/16 at 1253 by ELIU BLAND RN OG TUBE PULLED OUT DURING EXTUBATION.
--- NOTE | 2016-06-21 12:15 | NUR ---
pt was extubated @ 1215 per md order. pt is awake and said " thank you" after extubation. Addendum: 06/21/16 at 1231 by TERI NIELSON RT Amended: Links added.
--- NOTE | 2016-06-21 16:11 | NUR ---
PANTS PRESSER AUTOMATIC NOTE PT OBSERVED RESTING IN BED, SWALLOW EVAL PERFORMED AND RECOMMENDED CLEAR LIQUIDS FOR TODAY. ORDER PLACED. WILL CONTINUE TO MONITOR.
[2016-06-21] MEDS ORDERED: IV SET PRIMARY PUMP SET 1 EA INFUS.SET MC ONE (17:07)
[2016-06-21] MEDS: RIVAROXABAN 15 MG TABLET PO SCH (17:16)
[2016-06-21 18:36] LABS: ABG BASE EXCESS -5.1 mmol/L; ABG OXYGEN SATURATION 88.4 % (92.0-98.5); ABG PCO2 40.2 mmHg (35.0-45.0); ABG PH 7.325 (7.350-7.450); ABG PO2 62.3 mmHg (75.0-100.0); ABG TOTAL HEMOGLOBIN 13.5 G/dL (13.5-18.0); AaDO2 176.7 mmHg; COHb 0.8 % (0.5-1.5); MetHb 0.9 % (0.0-1.5); O2Hb 86.9 % (94.0-97.0); SITE, ABG A-Line; VENT MODE, BG NASAL CANNULA
--- NOTE | 2016-06-21 18:39 | NUR ---
ENDING MEDICARE CONTACT SPECIALIST NOTE PT AWAKE AND ALERT APPEARS COMFORTABLE THOUGH TACHYPNEIC (38-40) SATURATING ON NC (87-88), ABG PERFORMED ON 5L NC, RESULTS RELATED TO DR. BORJA. ORDERS RCVD FOR BIPAP 15/5 IF PT IS IN ANY DISTRESS. TLO PLACED BY EV COLLAZO. PT'S CARE WILL BE ENDORSED TO ENVIRONMENTAL PLANNER RN FOR CONTINUITY OF CARE AT CHANGE OF SHIFT.
--- NOTE | 2016-06-21 20:00 | NUR ---
ICU/R RECEIVED PT AWAKE ALERT,ORIENTED X3.DENIES PAIN OR DISCOMFORT.DENIES SHORTNESS OF BREATH W/ RESP RATE OF 35/MIN.SAT OF 94-95% ON 5L/NC.OFFERS NO COMPLAINTS.FAMILY AT BED SIDE VISITING,CONDITION REPORT GIVEN.
[2016-06-21] MEDS: PANTOPRAZOLE 40 MG VIAL IV SCH (22:04)
[2016-06-22] VITALS (30 sets, daily range): BP systolic 97–126; BP diastolic 36–74
[2016-06-22] MEDS: PIPERACILLIN /TAZOBACTAM 2.25 G in IV D5W 50 ML IV SCH ×4 (00:18→17:06)
--- NOTE | 2016-06-22 01:00 | NUR ---
ICU/RN TOLERATING CLEAR LIQUID W/OUT COUGHING OR CHOKING.OFFERS NO COMPLAINTS.
[2016-06-22] MEDS: IPRATROPIUM NEB FS 0.5 MG/2.5 ML AMPUL.NEB NEB SCH ×4 (01:13→20:01)
[2016-06-22] MEDS: ALBUTEROL FS 2.5 MG/3 ML VIAL.NEB NEB PRN ×2 (01:13→21:45)
[2016-06-22 04:47] LABS: EOSINOPHILS % (AUTO) 0.4 % (0.0-6.0); HEMATOCRIT 39 % (39-51); HEMOGLOBIN 12.5 g/dL (13.5-17.5); LYMPHOCYTES # (AUTO) 0.4 /CMM (0.8-4.8); LYMPHOCYTES % (AUTO) 3.7 % (20.0-44.0); MEAN CORPUSCULAR HEMOGLOBIN 26 PG (26.0-33.0); MEAN CORPUSCULAR HGB CONC 32 g/dl (31.0-36.0); MEAN CORPUSCULAR VOLUME 82 fL (80-96); MONOCYTES # (AUTO) 0.3 /CMM (0.1-1.30); MONOCYTES % (AUTO) 2.3 % (2.0-12.0); NEUTROPHILS # (AUTO) 11.1 /CMM (1.8-8.9); NEUTROPHILS % (AUTO) 93.6 % (43.0-81.0); PLATELET COUNT (AUTO) 221 /CMM (150-450); RDW COEFFICIENT OF VARIATION 16.4 (11.5-15.0); RED BLOOD CELL COUNT(AUTO) 4.74 MIL/uL (4.5-6.0); WHITE BLOOD COUNT (AUTO) 11.9 K/uL (4.3-11.0)
[2016-06-22 04:56] LABS: CALCIUM, SERUM 7.6 mg/dL (8.5-10.1); CREATININE 3.4 mg/dL (0.6-1.3); MAGNESIUM 2.6 mg/dL (1.8-2.4); POTASSIUM 3.5 mmol/L (3.5-5.1)
--- NOTE | 2016-06-22 06:00 | NUR ---
ICU/RN. MONITOR SHOWS ATRIAL FLUTTER FROM 43-46/MIN.BP STABLE.PT AWKE ALERT OX3.
--- NOTE | 2016-06-22 08:00 | NUR ---
ICU/RN PT IS IN THE BED ON 5L N/C ,SATO2-96%.V/S STABLE,AFEBRILE.NO PAIN REPORTED AT THIS TIME.AWAKE ,ALERT-2-3.PICC LINE ON THE RIGHT UPPER ARM.A-LINE ON THE RIGHT RADIAL.F/C DRAINING WITH YELLOW URINE.LABS REVIEW. NOTIFIED.REPOSITION FOR COMFORT.
[2016-06-22] MEDS: ASPIRIN 81 MG TAB.CHEW PO SCH (08:23)
[2016-06-22] MEDS: methylPREDNISolone SOD SUCC 125 MG/2ML VIAL IV SCH ×2 (08:23→17:06)
[2016-06-22] MEDS: OLANZAPINE 2.5 MG TABLET PO SCH ×3 (08:23→21:25)
[2016-06-22 08:44] LABS: ABG BASE EXCESS -0.2 mmol/L; ABG OXYGEN SATURATION 95.2 % (92.0-98.5); ABG PCO2 47.4 mmHg (35.0-45.0); ABG PH 7.353 (7.350-7.450); ABG PO2 86.9 mmHg (75.0-100.0); AaDO2 93.1 mmHg; COHb 0.7 % (0.5-1.5); MetHb 0.7 % (0.0-1.5); O2Hb 93.9 % (94.0-97.0); SITE, ABG Right Radial; VENT MODE, BG N/C
--- NOTE | 2016-06-22 09:00 | NUR ---
ICU/RN DUE MEDS ARE GIVEN ORDERED.PT EATS 75% FROM HIS BREAKFAST TRAY,HELPED WITH ASSISTANCE.TOLERATED WELL.MECHANICAL SOFT DIET ORDERED FOR LUNCH.ABG DONE.
[2016-06-22] MEDS: CALCIUM ACETATE 667 MG TABLET PO SCH ×2 (12:07→17:06)
--- NOTE | 2016-06-22 15:00 | NUR ---
ICU/RN A-LINE REMOVED ORDERED.
--- NOTE | 2016-06-22 16:35 | NUR ---
ICU/RN PM CARE PROVIDED.DUE MEDS ARE GIVEN ORDERED.
[2016-06-22] MEDS: RIVAROXABAN 15 MG TABLET PO SCH (17:05)
--- NOTE | 2016-06-22 17:15 | NUR ---
ICU/RN DUE MEDS ARE GIVEN ORDERED.RECEIVED ORDER TRANSFER PT TO PRASANNA.REPORT GIVEN TO SOON/RN.V/S STABLE.AFEBRILE.
--- NOTE | 2016-06-22 18:21 | NUR ---
PRASANNA RN, patient recieved to room 108 patient is awake and alert oriented x3 oxygen 5l/m via nc HOB 45 degree iv infusing well in to right PICC line with no signs of redness or swelling noted telemetry shows a flutter rate 52 at this time mann catheter in place with draining well to gravity ,will endorsed to next shift for continuity of care made patient comfortable
--- NOTE | 2016-06-22 19:30 | NUR ---
MOLD OPERATOR INITIAL NOTES RECEIVED PATIENT ASLEEP, EASY TO AROUSE. CZECH SPEAKING. DENIES PAIN OR DISCOMFORT. NO RESPIRATORY DISTRESS NOTED. SKIN WARM AND DRY TO TOUCH. ON TELE MONITOR AFLUTTER 48. WITH SURESH PICC LINE PATENT AND INTACT, TKO. WITH F/C DRAINING BY GRAVITY. HOB ELEVATED. SIDE RAILS UP AND LOCKED, BED KEPT AT LOWEST POSITION. CALL LIGHT KEPT WITHIN EASY REACH. WILL CONTINUE TO MONITOR.
[2016-06-22] MEDS: PANTOPRAZOLE 40 MG VIAL IV SCH (21:24)
[2016-06-23] VITALS: BP 118/60
[2016-06-23] MEDS: PIPERACILLIN /TAZOBACTAM 2.25 G in IV D5W 50 ML IV SCH ×4 (00:33→17:28)
[2016-06-23] MEDS: IPRATROPIUM NEB FS 0.5 MG/2.5 ML AMPUL.NEB NEB SCH ×4 (00:45→20:19)
[2016-06-23 04:00] VITALS: BP 133/66
[2016-06-23] MEDS ORDERED: IV NS 0.9% 250 ML IV ONE (05:37)
--- NOTE | 2016-06-23 07:18 | NUR ---
DRAPERY HANGER CLOSING NOTES NO SIGNIFICANT CHANGES OVERNIGHT. NO EPISODE OF RESPIRATORY DISTRESS, ON 5LPMO2 VIA NC. KEPT CLEAN AND DRY. TURNED AND REPOSITIONED Q2 AND PRN. F/C DRAINING. ISOLATION PRECAUTIONS OBSERVED. HOB ELEVATED. SIDE RAIL UP AND LOCKED. BED KEPT AT LOWEST POSITION. AFLUTTER ON MONITOR. CALL LIGHT KEPT WITHIN EASY REACH. WILL ENDORSE CONTINUITY OF CARE TO AM NURSE.
--- NOTE | 2016-06-23 07:30 | NUR ---
RN NOTES RECEIVED PATIENT IN BED ALERT, AWAKE, ORIENTED X2 WITH BREATHING NORMAL, EVEN AND UNLABORED. NO SOB NOTED. NO ACUTE DISTRESS NOTED. ON 5L O2 VIA NC, SATURATING WELL. DENIES ANY PAIN OR DISCOMFORT. TELE MONITOR REVEALS A FLUTTER, HR=75. SURESH PICC LINE IS PATENT AND INTACT. BOWEL SOUND PRESENT. PULSES PRESENT. SAFETY MEASURE OBSERVED. ALL NEEDS ATTENDED. CALL LIGHT WITH IN REACH. WILL CONT TO MONITOR.
[2016-06-23 08:00] VITALS: BP 130/56
[2016-06-23 08:02] LABS: BASOPHILS % (AUTO) 0.1 % (0.0-2.0); HEMATOCRIT 42 % (39-51); HEMOGLOBIN 13.1 g/dL (13.5-17.5); LYMPHOCYTES # (AUTO) 0.6 /CMM (0.8-4.8); MEAN CORPUSCULAR HEMOGLOBIN 26 PG (26.0-33.0); MEAN CORPUSCULAR HGB CONC 31 g/dl (31.0-36.0); MEAN CORPUSCULAR VOLUME 83 fL (80-96); MONOCYTES # (AUTO) 0.3 /CMM (0.1-1.30); MONOCYTES % (AUTO) 2.7 % (2.0-12.0); NEUTROPHILS # (AUTO) 10.8 /CMM (1.8-8.9); NEUTROPHILS % (AUTO) 92.2 % (43.0-81.0); PLATELET COUNT (AUTO) 240 /CMM (150-450); RDW COEFFICIENT OF VARIATION 16.9 (11.5-15.0); RED BLOOD CELL COUNT(AUTO) 4.99 MIL/uL (4.5-6.0); WHITE BLOOD COUNT (AUTO) 11.7 K/uL (4.3-11.0)
[2016-06-23 08:20] LABS: ALBUMIN 2.5 g/dL (3.4-5.0); BILIRUBIN,TOTAL 0.9 mg/dL (0.2-1.0); CALCIUM, SERUM 7.9 mg/dL (8.5-10.1); CREATININE 2.9 mg/dL (0.6-1.3); TOTAL PROTEIN, SERUM 7.2 g/dL (6.4-8.2)
[2016-06-23 08:28] LABS: MAGNESIUM 2.7 mg/dL (1.8-2.4); PHOSPHORUS 5.5 mg/dL (2.5-4.9)
[2016-06-23] MEDS: CALCIUM ACETATE 667 MG TABLET PO SCH ×3 (08:35→17:27)
[2016-06-23] MEDS: ASPIRIN 81 MG TAB.CHEW PO SCH (08:35)
[2016-06-23] MEDS: methylPREDNISolone SOD SUCC 125 MG/2ML VIAL IV SCH (08:36)
[2016-06-23] MEDS: OLANZAPINE 2.5 MG TABLET PO SCH ×3 (08:36→21:30)
[2016-06-23 12:00] VITALS: BP 121/56
[2016-06-23] MEDS ORDERED: BUMETANIDE INJ 16 MG in IV NS 0.9% 16 ML IV ONE (12:00)
[2016-06-23] MEDS ORDERED: SECONDARY IV SET 1 EA INFUS.SET MC ONE (12:51)
[2016-06-23] MEDS: ACETAMINOPHEN 325 MG TABLET PO PRN (13:14)
[2016-06-23 16:00] VITALS: BP 123/68
[2016-06-23] MEDS: RIVAROXABAN 15 MG TABLET PO SCH (17:28)
--- NOTE | 2016-06-23 19:12 | NUR ---
RN NOTES PATIENT ENDORSED TO NEXT SHIFT IN STABLE CONDITION WITH BREATHING NORMAL, EVEN AND UNLABORED. NO SOB NOTED. NO ACUTE DISTRESS NOTED. KEPT CLEAN, DRY AND COMFORTABLE. ALL NEEDS ATTENDED. SAFETY MEASURE OBSERVED. CALL LIGHT WITH IN REACH. WILL CONT TO MONITOR.
--- NOTE | 2016-06-23 19:30 | NUR ---
RECEIVED PT ON BEDREST. ABLE TO MAKE NEEDS KNOWN AND SPEAKS TURKMEN. ON 5L OF O2, SATING WELL. ON TELE A-FIB/A-FLUTTER 60'S. ISOLATION PRECAUTIONS OBSERVED. CUADRA CATHETER IN PLACE AND DRAINING BY GRAVITY. IV SURESH PICC CLEAN, DRY, INTACT AND FLUSHING WELL. BED IN LOWEST POSITION, BED LOCKED AND CALL LIGHT WITHIN REACH AT ALL TIMES. ALL SAFETY MEASURES IN PLACE. WILL CONTINUE TO MONITOR.
[2016-06-23 20:00] VITALS: BP 147/71
[2016-06-23] MEDS: PANTOPRAZOLE 40 MG VIAL IV SCH (21:30)
[2016-06-24] VITALS (7 sets, daily range): BP systolic 127–152; BP diastolic 66–83
[2016-06-24] MEDS: PIPERACILLIN /TAZOBACTAM 2.25 G in IV D5W 50 ML IV SCH ×5 (00:18→23:44)
[2016-06-24] MEDS: IPRATROPIUM NEB FS 0.5 MG/2.5 ML AMPUL.NEB NEB SCH ×4 (01:30→19:31)
--- NOTE | 2016-06-24 01:42 | NUR ---
PT REFUSED TX, NO RESP DISTRESS NOTED, DANA FREIRE NOTIFIED Addendum: 06/24/16 at 0142 by NOHEMY KU RT Amended: Links added.
--- NOTE | 2016-06-24 02:20 | NUR ---
RN NOTES RECEIVED REPORT FROM DANA FREIRE FOR THE PATIENT'S CONTINUITY OF CARE
--- NOTE | 2016-06-24 06:30 | NUR ---
RN CLOSING NOTES PT REMAINS STABLE OF THE MOMENT. ALL DUE MEDS GIVEN. AM CARE PROVIDED. WILL ENDORSE TO AM RN
[2016-06-24 06:45] LABS: BASOPHILS % (AUTO) 0.1 % (0.0-2.0); HEMATOCRIT 49 % (39-51); HEMOGLOBIN 15.4 g/dL (13.5-17.5); LYMPHOCYTES # (AUTO) 1.6 /CMM (0.8-4.8); LYMPHOCYTES % (AUTO) 10.6 % (20.0-44.0); MEAN CORPUSCULAR HEMOGLOBIN 26 PG (26.0-33.0); MEAN CORPUSCULAR HGB CONC 31 g/dl (31.0-36.0); MEAN CORPUSCULAR VOLUME 83 fL (80-96); MONOCYTES # (AUTO) 0.9 /CMM (0.1-1.30); MONOCYTES % (AUTO) 5.6 % (2.0-12.0); NEUTROPHILS # (AUTO) 12.9 /CMM (1.8-8.9); NEUTROPHILS % (AUTO) 83.7 % (43.0-81.0); PLATELET COUNT (AUTO) 282 /CMM (150-450); RDW COEFFICIENT OF VARIATION 16.1 (11.5-15.0); RED BLOOD CELL COUNT(AUTO) 5.97 MIL/uL (4.5-6.0); WHITE BLOOD COUNT (AUTO) 15.4 K/uL (4.3-11.0)
--- NOTE | 2016-06-24 07:00 | NUR ---
RN NOTES RECEIVED PT ON BED , A/Ox1, ROMANIAN SPEAKING ,RESPIRATION EVEN AND UNLABORED, ON 02 5L N/C , ON TELE A-FIB/A-FLUTTER , ISOLATION PRECAUTIONS OBSERVED. CUADRA CATHETER DRAINING TO GRAVITY DRAINING WELL, IV R UA PICC CLEAN, DRY, INTACT AND FLUSHING WELL. BED LOCKED AND IN LOWEST POSITION, CALL LIGHT WITHIN EASY REACH ALL SAFETY MEASURES IN PLACE. WILL CONTINUE TO MONITOR PT CLOSELY AND NOTIFY MD FOR ANY SIGNIFICANT CHANGES.
[2016-06-24 07:17] LABS: ALBUMIN 3.1 g/dL (3.4-5.0); BILIRUBIN,TOTAL 1.1 mg/dL (0.2-1.0); CALCIUM, SERUM 8.4 mg/dL (8.5-10.1); CREATININE 2.6 mg/dL (0.6-1.3); MAGNESIUM 2.5 mg/dL (1.8-2.4); PHOSPHORUS 2.9 mg/dL (2.5-4.9); POTASSIUM 3.1 mmol/L (3.5-5.1); TOTAL PROTEIN, SERUM 8.7 g/dL (6.4-8.2)
--- NOTE | 2016-06-24 08:00 | NUR ---
RN NOTES PT IS CONFUSED AND COMBATIVE AND TRYING TO GET OOB AND PULLS TELE AND IV OUT , DR HINSON NOTIFIED AND ORDER RECEIVED FOR DANIELLE. SOFT WRIST PROTECTIVE RESTRAIN DEVICE . CONTINUE TO MONITOR PT CLOSELY AND FOLLOW SAFETY PRECAUTION .
[2016-06-24] MEDS: ACETAMINOPHEN 325 MG TABLET PO PRN (08:17)
[2016-06-24] MEDS: CALCIUM ACETATE 667 MG TABLET PO SCH ×3 (08:17→17:41)
[2016-06-24] MEDS: ASPIRIN 81 MG TAB.CHEW PO SCH (08:17)
[2016-06-24] MEDS: OLANZAPINE 2.5 MG TABLET PO SCH ×3 (08:18→21:57)
[2016-06-24] MEDS: methylPREDNISolone SOD SUCC 125 MG/2ML VIAL IV SCH (08:18)
[2016-06-24] MEDS ORDERED: BUMETANIDE INJ 16 MG in IV NS 0.9% 16 ML IV ONE (11:00)
[2016-06-24] MEDS ORDERED: POTASSIUM CHLORIDE 20 MEQ TAB.PRT.SR PO SCH (11:00)
[2016-06-24] MEDS: POTASSIUM CL. PREMIX PERIPHER. 50 ML IV SCH ×4 (11:21→14:54)
[2016-06-24] MEDS ORDERED: IV SET PRIMARY PUMP SET 1 EA INFUS.SET MC ONE (11:23)
[2016-06-24] MEDS ORDERED: LORAZEPAM INJ 2 MG/ML VIAL IV PRN (11:30)
[2016-06-24] MEDS: RIVAROXABAN 15 MG TABLET PO SCH (17:01)
--- NOTE | 2016-06-24 18:00 | NUR ---
RN NOTES PT STILL UNCOOPERATIVE , PULLING ON HIS LINES , DANIELLE WRIST PROTECTIVE DEVICE ON FOR PT SAFETY , CUADRA TO GRAVITY WITH DRAINING WELL, SR UP x3, BED ALARM ON FOR PT SAFETY , NO SIGNIFICANT CHANGES NOTED ON THIS SHIFT.
--- NOTE | 2016-06-24 19:30 | NUR ---
SENIOR CENTER MANAGER INITIAL NOTE RECEIVED PT IN BED WITH BILATERAL SOFT WRIST RESTRAINTS, CIRCULATION CHECKED WITHOUT DISCOLORATION NOTED,NO C/C PAIN OR DISCOMFORT, PALPABLE PULSES, CAP REFILL CHECKED. BED IN LOWEST POSITION, LOCKED AND BED ALARM ON. A/O X1 SWEDISH SPEAKING CONFUSED AT TIMES. O2 @ 5L VIA NASAL CANNULA AND SATING WELL WITH NO ACUTE DISTRESS NOTED AT THIS TIME. TELE- AFLUTTER WITH PVC 90'S. CUADRA CATHETER IN PLACE AND DRAINING BY GRAVITY, PATENT. ISOLATION PRECAUTION OBSERVED. IV SURESH PICC PATENT, FLUSHING WELL, CLEAN AND INTACT. ALL SAFETY MEASURES IN PLACE. CALL LIGHT WITHIN REACH AT ALL TIMES. WILL CONTINUE TO MONITOR.
[2016-06-24] MEDS: PANTOPRAZOLE 40 MG VIAL IV SCH (21:56)
[2016-06-25] VITALS (7 sets, daily range): BP systolic 118–142; BP diastolic 79–100
[2016-06-25] MEDS: IPRATROPIUM NEB FS 0.5 MG/2.5 ML AMPUL.NEB NEB SCH ×4 (01:45→20:11)
[2016-06-25] MEDS: PIPERACILLIN /TAZOBACTAM 2.25 G in IV D5W 50 ML IV SCH ×4 (06:22→23:55)
--- NOTE | 2016-06-25 07:15 | NUR ---
TOBACCO FEEDER CATCHER NOTES RECEIVED PATIENT AOX2 CONFUSED , REORIENT PT TO PLACE DATE AND TIME , NOT IN ACUTE DISTRESS ,RESPIRATIONS EVEN AND UNLABORED , SPO2 OF 98% 5LPM NC , AFLUTTER 80 ON TELE MONITOR , FC DRAINING WELL VIA GRAVITY WITH CLEAR YELLOW URINE , IV OF SURESH PICC LINE PATENT AND INTACT , BILATERAL SOFT WRIST RESTRAINS IN PLACE VISUAL CHECK PER PROTOCOL , ALL NEEDS ATTENDED , BED ON LOW AND LOCKED POSITION , SIDE RAILS X2 ,CALL LIGHT WITHIN REACH , HOB 45 , WILL CONTINUE TO MONITOR
[2016-06-25 07:44] LABS: CALCIUM, SERUM 9.5 mg/dL (8.5-10.1); CREATININE 2.9 mg/dL (0.6-1.3); POTASSIUM 3.3 mmol/L (3.5-5.1)
[2016-06-25 08:26] LABS: BASOPHILS % (AUTO) 0.1 % (0.0-2.0); HEMATOCRIT 56 % (39-51); HEMOGLOBIN 17.8 g/dL (13.5-17.5); LYMPHOCYTES # (AUTO) 1.7 /CMM (0.8-4.8); LYMPHOCYTES % (AUTO) 10.4 % (20.0-44.0); MEAN CORPUSCULAR HEMOGLOBIN 26 PG (26.0-33.0); MEAN CORPUSCULAR HGB CONC 32 g/dl (31.0-36.0); MEAN CORPUSCULAR VOLUME 82 fL (80-96); MONOCYTES # (AUTO) 1.1 /CMM (0.1-1.30); MONOCYTES % (AUTO) 6.7 % (2.0-12.0); NEUTROPHILS # (AUTO) 13.6 /CMM (1.8-8.9); NEUTROPHILS % (AUTO) 82.8 % (43.0-81.0); PLATELET COUNT (AUTO) 341 /CMM (150-450); RDW COEFFICIENT OF VARIATION 16.3 (11.5-15.0); RED BLOOD CELL COUNT(AUTO) 6.86 MIL/uL (4.5-6.0); WHITE BLOOD COUNT (AUTO) 16.4 K/uL (4.3-11.0)
[2016-06-25] MEDS: ASPIRIN 81 MG TAB.CHEW PO SCH (08:48)
[2016-06-25] MEDS: OLANZAPINE 2.5 MG TABLET PO SCH ×3 (08:48→21:22)
[2016-06-25] MEDS: CALCIUM ACETATE 667 MG TABLET PO SCH ×3 (08:49→17:48)
[2016-06-25] MEDS: methylPREDNISolone SOD SUCC 125 MG/2ML VIAL IV SCH (08:49)
[2016-06-25 12:24] LABS: ALBUMIN 3.5 g/dL (3.4-5.0); BILIRUBIN,DIRECT 0.6 mg/dL (0.0-0.2); BILIRUBIN,TOTAL 1.8 mg/dL (0.2-1.0); TOTAL PROTEIN, SERUM 9.8 g/dL (6.4-8.2)
--- NOTE | 2016-06-25 14:00 | NUR ---
GRIP WRAPPER NOTES K OF 3.[address] BUSH AND DR GODOY , AWAITING FOR ORDERS
--- NOTE | 2016-06-25 14:34 | NUR ---
INTERIOR DESIGN TEACHER NOTES ABDOMINAL ULTRASOUND RESULT FOLLOWED UP , SPOKE WITH WINNIE HEART SPECIALIST AWARE .
[2016-06-25] MEDS: predniSONE 20 MG TABLET PO SCH (17:49)
[2016-06-25] MEDS: RIVAROXABAN 15 MG TABLET PO SCH (18:43)
--- NOTE | 2016-06-25 19:30 | NUR ---
GEOLOGY FACULTY MEMBER INITIAL NOTE RECEIVED PT IN BED. A/O X1 KINYARWANDA SPEAKING. PT ON BILATERAL SOFT WRIST RESTRAINTS, BED IN LOWEST POSITION, AND LOCKED. ON 5L O2 VIA NASAL CANNULA AND SATING WELL. IV SURESH PICC CLEAN, DRY AND INTACT, FLUSHING WELL. CUADRA CATHETER DRAINING BY GRAVITY AND PATENT. ISOLATION PRECAUTIONS OBSERVED. ALL SAFETY MEASURES IN PLACE. CALL LIGHT WITHIN EASY REACH. WILL CONTINUE TO MONITOR.
[2016-06-25] MEDS: PANTOPRAZOLE 40 MG VIAL IV SCH (21:22)
[2016-06-26] VITALS (50 sets, daily range): BP systolic 35–166; BP diastolic 22–127
[2016-06-26] MEDS: IPRATROPIUM NEB FS 0.5 MG/2.5 ML AMPUL.NEB NEB SCH ×4 (01:24→20:18)
[2016-06-26] MEDS ORDERED: IV SET PRIMARY PUMP SET 1 EA INFUS.SET MC ONE ×2 (05:59→14:04)
[2016-06-26] MEDS ORDERED: IV NS 0.9% 250 ML IV ONE (05:59)
[2016-06-26] MEDS: PIPERACILLIN /TAZOBACTAM 2.25 G in IV D5W 50 ML IV SCH ×3 (05:59→18:57)
[2016-06-26] MEDS ORDERED: SECONDARY IV SET 1 EA INFUS.SET MC ONE ×3 (05:59→19:54)
[2016-06-26 07:25] LABS: BASOPHILS # (AUTO) 0.1 /CMM (0.0-0.2); BASOPHILS % (AUTO) 0.5 % (0.0-2.0); EOSINOPHILS % (AUTO) 0.1 % (0.0-6.0); HEMATOCRIT 57 % (39-51); HEMOGLOBIN 17.7 g/dL (13.5-17.5); LYMPHOCYTES # (AUTO) 1.9 /CMM (0.8-4.8); LYMPHOCYTES % (AUTO) 10.3 % (20.0-44.0); MEAN CORPUSCULAR HEMOGLOBIN 26 PG (26.0-33.0); MEAN CORPUSCULAR HGB CONC 31 g/dl (31.0-36.0); MEAN CORPUSCULAR VOLUME 84 fL (80-96); MONOCYTES # (AUTO) 1.1 /CMM (0.1-1.30); MONOCYTES % (AUTO) 5.8 % (2.0-12.0); NEUTROPHILS # (AUTO) 15.3 /CMM (1.8-8.9); NEUTROPHILS % (AUTO) 83.3 % (43.0-81.0); PLATELET COUNT (AUTO) 376 /CMM (150-450); RDW COEFFICIENT OF VARIATION 16.3 (11.5-15.0); RED BLOOD CELL COUNT(AUTO) 6.86 MIL/uL (4.5-6.0); WHITE BLOOD COUNT (AUTO) 18.4 K/uL (4.3-11.0)
--- NOTE | 2016-06-26 07:35 | NUR ---
RN INITIAL NOTES: Received patient on bed during rounds, awake, alert and oriented x1 to name, Estonian speaking but able to speak Italian a little bit. able to make needs known, needs anticipated and attended. With soft wrist bilateral restraints noted, circulation checked observed. On O2 at 3LPM saturating at 95%l. With SURESH PICC flushed with NS and patent, on TKO. On Telemonitoring Atrial Flutter with occasional PVC's at 85bpm. With Marx Catheter in placed, draining well to yellow urine, no sediments, no hematuria and foul odor noted. NO SOB, No LOC, respirations are even and unlabored, no acute distress noted. Kept clean and dry. Provided safety and comfort measures. Bed low and locked position, fall precaution observed. Will turn and reposition, offload heels as per protocol. HOB elevated, aspiration precaution observed. For possible transfer to [facility] for Cardiac Ablation, CM on board, will f/u. To continue to monitor accordingly.
[2016-06-26] MEDS: ALBUTEROL FS 2.5 MG/3 ML VIAL.NEB NEB PRN ×2 (07:40→23:09)
[2016-06-26 07:54] LABS: ALBUMIN 3.4 g/dL (3.4-5.0); BILIRUBIN,TOTAL 2.1 mg/dL (0.2-1.0); CREATININE 3.1 mg/dL (0.6-1.3); MAGNESIUM 2.8 mg/dL (1.8-2.4); PHOSPHORUS 4.3 mg/dL (2.5-4.9); POTASSIUM 3.8 mmol/L (3.5-5.1); TOTAL PROTEIN, SERUM 9.4 g/dL (6.4-8.2)
[2016-06-26] MEDS: OLANZAPINE 2.5 MG TABLET PO SCH ×3 (08:52→22:00)
[2016-06-26] MEDS: ASPIRIN 81 MG TAB.CHEW PO SCH (08:52)
[2016-06-26] MEDS: CALCIUM ACETATE 667 MG TABLET PO SCH ×3 (08:52→18:45)
[2016-06-26] MEDS: predniSONE 20 MG TABLET PO SCH (08:52)
[2016-06-26] MEDS: ACETYLCYSTEINE 10% SOLN 400 MG/4 ML VIAL NEB SCH ×3 (10:30→23:09)
--- NOTE | 2016-06-26 11:15 | NUR ---
RN NOTES: Dr. Steele informed of laboratory result today, BUN and creatinine increasing and noted to review.
--- NOTE | 2016-06-26 11:40 | NUR ---
RN NOTES: Seen and examined by Dr. Valverde and Dr. Brown today with orders noted and carried out.
[2016-06-26] MEDS ORDERED: IV NS 0.9% 1,000 ML ONE (13:41)
[2016-06-26] MEDS ORDERED: NOREPINEPHRINE 8 MG in IV D5W 500 ML IV PRN ×2 (14:00→14:30)
[2016-06-26] MEDS ORDERED: NOREPINEPHRINE 16 MG in IV D5W 500 ML IV PRN (14:00)
[2016-06-26] MEDS ORDERED: AMIODARONE 900 MG in IV D5W 482 ML IV PRN ×2 (14:00→14:30)
[2016-06-26 14:27] LABS: BASOPHILS % (AUTO) 0.2 % (0.0-2.0); EOSINOPHILS % (AUTO) 0.2 % (0.0-6.0); HEMATOCRIT 37 % (39-51); HEMOGLOBIN 11.4 g/dL (13.5-17.5); LYMPHOCYTES # (AUTO) 3.2 /CMM (0.8-4.8); MEAN CORPUSCULAR HEMOGLOBIN 26 PG (26.0-33.0); MEAN CORPUSCULAR HGB CONC 31 g/dl (31.0-36.0); MEAN CORPUSCULAR VOLUME 85 fL (80-96); MONOCYTES # (AUTO) 0.4 /CMM (0.1-1.30); MONOCYTES % (AUTO) 2.3 % (2.0-12.0); NEUTROPHILS # (AUTO) 14.9 /CMM (1.8-8.9); NEUTROPHILS % (AUTO) 80.3 % (43.0-81.0); PLATELET COUNT (AUTO) 251 /CMM (150-450); RDW COEFFICIENT OF VARIATION 16.6 (11.5-15.0); RED BLOOD CELL COUNT(AUTO) 4.34 MIL/uL (4.5-6.0); WHITE BLOOD COUNT (AUTO) 18.6 K/uL (4.3-11.0)
[2016-06-26] MEDS ORDERED: IV NS 0.9% 1,000 ML IV PRN (14:30)
[2016-06-26] MEDS ORDERED: PROPOFOL 100 ML IV PRN (14:30)
[2016-06-26] MEDS ORDERED: VASOPRESSIN INJ 50 UNIT in IV D5W 497.5 ML IV PRN (14:30)
[2016-06-26] MEDS ORDERED: AMIODARONE 150 MG in IV D5W 100 ML IV ONE (14:30)
[2016-06-26] MEDS ORDERED: VANCOMYCIN 1.25 GM in IV D5W 500 ML IV SCH (14:30)
[2016-06-26] MEDS ORDERED: EPINEPHRINE (1:1000) 1 MG in IV D5W 250 ML IV PRN (14:30)
--- NOTE | 2016-06-26 14:30 | NUR ---
CODE BLUE COMPLETED AT 1426. A FLATTER 106, BP 137/76, VENTED ETT 7.5 23 CM AC 24, TV 650, 100%. BILAT. PUPILS FIX, 4MM. LEVOPHED, NORSYNEPHRINE AND BOLUS IN PROGRESS.
[2016-06-26] MEDS: PHENYLEPHRINE 80 MG in IV D5W 250 ML IV PRN (14:38)
[2016-06-26 14:48] LABS: ABG OXYGEN SATURATION 91.3 % (92.0-98.5); ABG PCO2 62.9 mmHg (35.0-45.0); ABG PH 7.157 (7.350-7.450); ABG PO2 81.9 mmHg (75.0-100.0); ABG TOTAL HEMOGLOBIN 15.1 G/dL (13.5-18.0); AaDO2 568.2 mmHg; COHb 1.4 % (0.5-1.5); MetHb 0.8 % (0.0-1.5); O2Hb 89.3 % (94.0-97.0); PEEP,BG 0 cm H2O; SITE, ABG Right Femoral; VT, ABG 550 mL
--- NOTE | 2016-06-26 15:04 | NUR ---
At 1235hrs Patient assisted in feeding at this time, HOB elevated, aspiration precaution observed. At 1240 Noted patient coughing and suddenly became altered. V/s checked BP 104/53mmhg HR 84bpm RR16 Spo2 saturation 84%, In acute respiratory distress. 1246hrs INDUSTRIAL WASTE TREATMENT TECHNICIAN called escalated to [facility] at 1247hrs, noted Cyanosis, Spo2 dropped to 30%, Pulse present. v/s checked BP105/49mmhg [id number] Blood sugar 256mg/dl. At 1252hrs ER MD Dr Ayala came and intubated patient. At 1300hrs patient became unresponsive with no pulse- [facility] called again, CPR initiated. At 1305hrs v/s obtained with pulse noted,Dr. Ayala was able to changed ET Tube to 7.5, Dr. Junito Sauceda at bedside, will transfer patient to ICU. While transporting patient to ICU, noted patient V-Fibrillation Dr. Sauceda at bedside, ordered for Defibrillation at 200joules. Noted Pulseless-CPR started. 1314hrs, Placed to ICU room connected to monitor. V/s able to appreciate with palpable pulse. See Code Blue record. Endorsed to Priyanka DEWEY for continuity of care. Addendum: 06/26/16 at 1744 by PETAR KWAN RN Addendum to above notes: On First Called of [facility]psy batres at 1246hrs Noted patient having Atrial Fibrillation at 80bpm. At second code blue at 1252hrs, noted Right Idioventricular/Bradycardia at 30bpm. At 1302hrs noted V-fibrillation.
[2016-06-26] MEDS ORDERED: FEE PK DOSING 1 MIN EA MC ONE (15:11)
[2016-06-26 15:27] LABS: BAND % (MANUAL) 1 % (0.0-5.0); EOSINOPHILS % (MANUAL) 2 % (0-4); LYMPHOCYTES % (MANUAL) 13 % (16-48); MONOCYTES % (MANUAL) 2 % (0-11.0); NEUTROPHILS % (MANUAL) 82 (42-76)
[2016-06-26 15:28] LABS: ANISOCYTOSIS 1+; HYPOCHROMASIA 1+; PLATELET ESTIMATE ADEQUATE
--- NOTE | 2016-06-26 15:30 | NUR ---
RESPOND TO PEDIATRIC RN WHICH ENDED UP TURNING INTO A CODE BLUE 1246PM. CPR INITIATED. DR. OLIVER AT [facility]. INTUBATES PATIENT WITH A 8.0 ETT INITIALLY AT 24CM AT THE LIP. B/S AUSCULTATED ON RIGHT, ABSENT ON LEFT. GLYDOSCOPE THEN USED TO VISUALIZE VOCAL CORDS, EXTUBATE CURRENT 8.0 ETT AND RE-INTUBATE WITH A 7.5 ETT AT 23 CM AT THE LIP. POSITIVE COLOR CHANGE ON CAP. SATURATION STILL LOW, BREATH SOUNDS ABSENT ON LEFT. PULSES BACK, TRANSPORTED PATIENT AND BEGAN SECOND CODE BLUE DURING TRANSPORT. ONCE IN ROOM, CONTINUED WITH CPR WHILE DR. HINSON GAVE VERBAL ORDER FOR STAT BRONCHOSCOPY. OLYMPUS BRONCH USED. DR. HINSON VISUALIZED FOOD PARTICLES OBSTRUCTING THE LEFT MAIN STEM BRONCHUS. LAVAGED, SUCTIONED AND MECHANICALLY MOVED THE OBSTRUCTION. PT PLACED ON VENT, VENT SETTINGS PER DR. HINSON AND DR. BORJA. VENT PLUGGED INTO RED OUTLET. ETT 7.5 AT 23CM AT THE LIP. ALARMS CHECKED AND AUDIBLE PER POLICY. WILL CONTINUE TO MONITOR PT.
[2016-06-26] MEDS ORDERED: EPINEPHRINE (1:1000) 1 MG/ML AMPUL IV ONE (15:36)
[2016-06-26] MEDS ORDERED: AMIODARONE 150 MG/3 ML VIAL IV ONE (15:36)
[2016-06-26] MEDS ORDERED: SODIUM BICARBONATE SYR 50 MEQ/50 ML DISP.SYRIN IV ONE (15:37)
[2016-06-26] MEDS ORDERED: ETOMIDATE 2 MG/ML VIAL IV ONE (15:38)
[2016-06-26] MEDS ORDERED: ROCURONIUM BROMIDE 50 MG/5 ML IV ONE (15:38)
[2016-06-26 15:46] LABS: ALANINE AMINOTRANSFERASE 188 U/L (12-78); ALBUMIN 2.3 g/dL (3.4-5.0); ALKALINE PHOSPHATASE 168 U/L (46-116); ASPARTATE AMINOTRANSFERASE 137 U/L (15-37); BILIRUBIN,DIRECT 0.7 mg/dL (0.0-0.2); BILIRUBIN,TOTAL 1.6 mg/dL (0.2-1.0); CALCIUM, SERUM 8.8 mg/dL (8.5-10.1); CARBON DIOXIDE 25 mmol/L (21-32); CHLORIDE 107 mmol/L (98-107); CREATININE 3.7 mg/dL (0.6-1.3); MAGNESIUM 2.9 mg/dL (1.8-2.4); POTASSIUM 3.7 mmol/L (3.5-5.1); SODIUM SERUM 155 mmol/L (136-145); TOTAL PROTEIN, SERUM 6.9 g/dL (6.4-8.2)
[2016-06-26 15:48] LABS: CREATINE KINASE, TOTAL 372 U/L (39-308)
[2016-06-26] MEDS ORDERED: VANCOMYCIN 0.75 GM in IV D5W 250 ML IV SCH (16:00)
--- NOTE | 2016-06-26 16:00 | NUR ---
ICU/RN: RECEIVED PT POST CODE BLUE. PT INTUBATED, ETT 7.5, 24 AT THE LIP. PT ON VENT SETTINGS ORDERED BY MD, NO ACUTE DISTRESS NOTED AT THIS TIME. PT COMATOSE, NOT RESPONSIVE. NO SEDATION AT THIS TIME. PT ON TELE, A.FIB CONTROLLED WITH RUNS OF PVC'S. CUADRA IN PLACE, LOW URINE OUTPUT NOTED. PT ON LEVO FOR BP SUPPORT, WILL TITRATE PER PROTOCOL. FAMILY AT BEDSIDE, ALL QUESTIONS ANSWERED. WILL CONTINUE WITH SUPPORTIVE CARE. SAFETY MEASURES TAKEN, BED IN LOW POSITION, SIDE RAILS UP, CALL LIGHT WITHIN REACH.
[2016-06-26 16:04] LABS: GLUCOSE 353 mg/dL (74-106); UREA NITROGEN, BLOOD 106 mg/dL (7-18)
[2016-06-26 16:06] LABS: LACTIC ACID 15.6 mmol/L (0.4-2.0)
[2016-06-26 16:10] LABS: CREATINE KINASE MB 64.1 ng/mL (0-3.6)
--- NOTE | 2016-06-26 16:30 | NUR ---
ICU/RN: RELAYED ALL CRITICAL LABS TO . WILL FOLLOW THROUGH WITH ORDERS
[2016-06-26] MEDS: RIVAROXABAN 15 MG TABLET PO SCH (17:00)
[2016-06-26] MEDS ORDERED: HYDROCORTISONE SOD SUCCINATE 100 MG/2 ML VIAL IV SCH (17:00)
[2016-06-26 17:52] LABS: INR 1.79 (0.87-1.13); PROTHROMBIN TIME 19.9 SECS (9.5-12.7)
[2016-06-26] MEDS: BLOOD SUGAR DIAGNOSTIC 1 EACH STRIP IN SCH ×3 (18:48→23:02)
[2016-06-26] MEDS: IV 1/2NS 1000 ML 1,000 ML IV PRN (18:50)
[2016-06-26] MEDS: INSULIN REGULAR, HUMAN 100 UNIT/ML 3 ML VIAL SQ PRN ×3 (18:59→23:04)
--- NOTE | 2016-06-26 19:38 | NUR ---
ICU/RN ENDING NOTES: REPORT ENDORSED TO NIGHT NURSE. ON VENT SETTINGS ORDERED, NO DISTRESS. PT NO RESPONSIVE. ON LEVO FOR BP SUPPORT. IV FLUIDS INFUSING ORDERED. OG TUBE IN PLACE. ALLNEEDS MET. REPORT ENDORSED FOR CONTINUATION OF CARE. ALL CRITICAL LABS RELAYED TO MD, ORDERS FOLLOWED THROUGH.
--- NOTE | 2016-06-26 19:45 | NUR ---
Received patient unresponsive to verbal and painful stimuli.Pupils unequal and non reactive right size 2 and left size 6.Orally intubated to vent on AC 24,TV 650,FIO2 100%.SPO2 100%. Suction mod pink tinge secretions.Afib with occasional pvc's per monitor.Levophed double concentrate infusing at 12 mcg/min for BP support and will titrate accordingly..OGT clamped. NPO status maintained with IVF infusing to SURESH PICC Line.Placement verified.FC to gravity with scanty yellow urine with sediments.No acute distress noted.Monitor closely.
[2016-06-26] MEDS ORDERED: MEROPENEM 500 MG in IV NS 0.9% 50 ML IV SCH (20:00)
--- NOTE | 2016-06-26 20:00 | NUR ---
Patient family visiting and updated of patient status and plan of care.Verbalized understood. All questions answered.
[2016-06-26] MEDS: PANTOPRAZOLE 40 MG VIAL IV SCH (22:00)
--- NOTE | 2016-06-26 22:46 | NUR ---
Patient with no urine output since 6 PM.IVF infusing. notified.No new orders received.
--- NOTE | 2016-06-26 22:48 | NUR ---
PT RECEIVED INTUBATED WITH 7.5 ETT SECURED AT 23CM AT THE LIP. PT IS ON AC 24, 650, 100%. NO RESP DISTRESS NOTED. PT TOLERATING VENT SETTINGS. SX'D FOR MOD AMT OF TINGED SECRETIONS. VENT ALARMS SET AND AUDIBLE. AMBU BAG AT [facility]. VENT PLUGGED INTO RED OUTLET. WILL CONTINUE TO MONITOR. Addendum: 06/26/16 at 2250 by SHELBY REID RT Amended: Links added.
[2016-06-27] VITALS (29 sets, daily range): BP systolic 0–145; BP diastolic 0–92
[2016-06-27] MEDS: BLOOD SUGAR DIAGNOSTIC 1 EACH STRIP IN SCH ×3 (01:23→05:35)
[2016-06-27] MEDS: IPRATROPIUM NEB FS 0.5 MG/2.5 ML AMPUL.NEB NEB SCH (01:23)
[2016-06-27] MEDS: INSULIN REGULAR, HUMAN 100 UNIT/ML 3 ML VIAL SQ PRN (01:25)
[2016-06-27 02:56] LABS: ABG BASE EXCESS 8.8 mmol/L; ABG OXYGEN SATURATION 97.7 % (92.0-98.5); ABG PCO2 34.4 mmHg (35.0-45.0); ABG PH 7.571 (7.350-7.450); ABG PO2 94.5 mmHg (75.0-100.0); ABG TOTAL HEMOGLOBIN 16.8 G/dL (13.5-18.0); AaDO2 584.1 mmHg; COHb 1.3 % (0.5-1.5); MetHb 0.8 % (0.0-1.5); O2Hb 95.6 % (94.0-97.0); SITE, ABG Right Radial
--- NOTE | 2016-06-27 02:57 | NUR ---
ABG DONE. RN NOTIFIED WITH THE RESULT.
--- NOTE | 2016-06-27 03:46 | NUR ---
VENT CHANGES RATE CHANGED TO [address] VENTURA. RN NOTIFIED.
--- NOTE | 2016-06-27 03:46 | NUR ---
Patient desaturate down to 85% Secretion suctioned.@ 0251 ABG''S done by RT,Aguilar pH 7.571,pCO2 34.4,pO2 94.5,HCO3 30.9 called to Lawson ChenOrders received and carried out.Rate down to 20.Done by RT.
[2016-06-27] MEDS: IV 1/2NS 1000 ML 1,000 ML IV PRN (04:07)
--- NOTE | 2016-06-27 04:10 | NUR ---
0415 Patient febrile temp 103.1. notified no tylenol order.Order received and carried out.Bed bath rendered.Continuous cooling measure done.Complete linens changed. Repositioned.
[2016-06-27] MEDS ORDERED: ACETAMINOPHEN 650 MG/20.3 ML UDC NG PRN (04:30)
--- NOTE | 2016-06-27 04:54 | NUR ---
Patient blood sugar monitored Q 2 HRS.Latest BS 48 and D50 1 amp given IV per order.
[2016-06-27] MEDS: DEXTROSE 50%-WATER 50 ML DISP.SYRIN IV PRN ×2 (04:55→05:39)
[2016-06-27] MEDS ORDERED: AMIODARONE 150 MG/3 ML VIAL IV ONE ×3 (04:58→05:12)
[2016-06-27] MEDS ORDERED: Magnesium 1 GM/2 ML VIAL IV ONE (04:58)
[2016-06-27] MEDS ORDERED: EPINEPHRINE (1:1000) 1 MG/ML AMPUL SUBCUT ONE (04:58)
[2016-06-27] MEDS ORDERED: CALCIUM CHLORIDE 1,000 MG/10 ML DISP.SYRIN IV ONE (04:58)
--- NOTE | 2016-06-27 04:58 | NUR ---
Patient remains unresponsive and no BP detected went into wide complex ventricular rhythm then asystole.CPR initiated and CODE BLUE called.Please refer to CODE JOSE RECORD.
--- NOTE | 2016-06-27 05:05 | NUR ---
Patient daughter,LINDA notified of patient on ongoing CODE BLUE.Per daughter this will be the last resuscitation.LALY Fontaine MD running code blue notified.
[2016-06-27 05:17] LABS: CALCIUM, SERUM 8.7 mg/dL (8.5-10.1); CREATININE 4.5 mg/dL (0.6-1.3); POTASSIUM 4.2 mmol/L (3.5-5.1)
--- NOTE | 2016-06-27 05:22 | NUR ---
CODE BLUE ended successfully.Amiodarone drip infusing at 1 mg/min pharmacy protocol. Place on external pacemaker per ER MD order paced at rate 70. Monitored closely.Levophed drip infusing and will titrate accordingly.
--- NOTE | 2016-06-27 05:40 | NUR ---
notified of patient latest blood sugar 66.With order to give D50 1 amp. Also made aware of patient daughter,Chinyere wish to keep patient DNR/DNI.Order received and carried out.
[2016-06-27] MEDS ORDERED: AMIODARONE 900 MG in IV D5W 482 ML IV PRN (06:00)
[2016-06-27] MEDS: PHENYLEPHRINE 80 MG in IV D5W 250 ML IV PRN (06:37)
--- NOTE | 2016-06-27 06:47 | NUR ---
Patient daughters at bedside.Updated of patient status.No BP detected since 0600. Asystole per monitor in all leads.Emotional support given and privacy provided.box truck washer,Ivett notified.
--- NOTE | 2016-06-27 06:51 | NUR ---
LATE ENTRY @0458 CODE BLUE WAS CALLED. UPON ARRIVAL DANA NOLASCO DOING CPR. I STARTED BAGGING THE PT. FINANCIAL ANALYSIS CONSULTANT AT BEDSIDE AND OTHER NURSES. ER MD HELPED WITH ACLS. PT WAS BROUGHT BACK GOOD RHYTHM ON THE MONITOR. PT WAS PLACED BACK ON THE VENT WITH SAME SETTINGS.
--- NOTE | 2016-06-27 07:05 | NUR ---
Report given to incoming AM SHIFT RN,GUERITA for continuity of care.Call [facility] and post mortem care.
--- NOTE | 2016-06-27 07:15 | NUR ---
ICU/RN: RECEIVED PT , [facility] CALLED. AWAITING FOR FAMILY TO SAY GOOD BYES PRIOR TO STARTING POST MORTEM CARE.FAMILY ALSO MAKING ARRANGEMENTS.
--- NOTE | 2016-06-27 07:18 | NUR ---
RN/ICU- PRONOUNCEMENT OF : PT CODE STATUS:DNR,DNI. PT. IS UNRESPONSIVE TO ANY FORM OF STIMULI. PUPILS ARE FIXED AND DILATED.APNEIC, RESPIRATIONS ARE ZERO. EKG ASYSTOLE X 2 LEADS.ABSENT PERIPHERAL PULSES AND HEART TONES. NO SIGNS OF LIFE. PT. PRONOUNCED . BY:SONALI RODRIGUEZ RN/BSN
== END 2016-06-27 10:45 | disposition expired | DRG 208 ==
LOC: ER 17:43 → ICU 20:03 → TELE1 06-22 18:12 → ICU 06-26 13:28
PROVIDERS: ADMIT Nurse Practitioner Acute Care; ATTEND Nurse Practitioner Acute Care
PROC: 5A1945Z Respiratory Ventilation, 24-96 Consecutive Hours (ICD-10-PCS; principal; 2016-06-17)
PROC: 0BH17EZ Insertion of Endotracheal Airway into Trachea, Via Natural or Artificial Opening (ICD-10-PCS; 2016-06-17)
PROC: 02HV33Z Insertion of Infusion Device into Superior Vena Cava, Percutaneous Approach (ICD-10-PCS; 2016-06-18)
PROC: B548ZZA Ultrasonography of Superior Vena Cava, Guidance (ICD-10-PCS; 2016-06-18)
PROC: 5A1935Z Respiratory Ventilation, Less than 24 Consecutive Hours (ICD-10-PCS; 2016-06-26)
PROC: 0BH17EZ Insertion of Endotracheal Airway into Trachea, Via Natural or Artificial Opening (ICD-10-PCS; 2016-06-26)
PROC: 5A12012 Performance of Cardiac Output, Single, Manual (ICD-10-PCS; 2016-06-27)
DX: J96.01 Acute respiratory failure with hypoxia (principal); J18.9 Pneumonia, unspecified organism; G93.41 Metabolic encephalopathy; N17.0 Acute kidney failure with tubular necrosis; I50.30 Unspecified diastolic (congestive) heart failure; J90 Pleural effusion, not elsewhere classified; E44.1 Mild protein-calorie malnutrition; D68.59 Other primary thrombophilia; E87.0 Hyperosmolality and hypernatremia; E87.2 Acidosis; I42.9 Cardiomyopathy, unspecified; I48.4 Atypical atrial flutter; J44.0 Chronic obstructive pulmonary disease with (acute) lower respiratory infection; J44.1 Chronic obstructive pulmonary disease with (acute) exacerbation; J98.11 Atelectasis; I13.0 Hypertensive heart and chronic kidney disease with heart failure and stage 1 through stage 4 chronic kidney disease, or unspecified chronic kidney disease; I48.1 Persistent atrial fibrillation; J96.02 Acute respiratory failure with hypercapnia; K21.9 Gastro-esophageal reflux disease without esophagitis; F31.9 Bipolar disorder, unspecified; F03.90 Unspecified dementia, unspecified severity, without behavioral disturbance, psychotic disturbance, mood disturbance, and anxiety; Z86.73 Personal history of transient ischemic attack (TIA), and cerebral infarction without residual deficits; E78.5 Hyperlipidemia, unspecified; Z87.11 Personal history of peptic ulcer disease; N18.9 Chronic kidney disease, unspecified; D64.9 Anemia, unspecified; E83.39 Other disorders of phosphorus metabolism; F20.9 Schizophrenia, unspecified; I25.2 Old myocardial infarction; I49.01 Ventricular fibrillation; I70.0 Atherosclerosis of aorta; Z79.82 Long term (current) use of aspirin; Z87.891 Personal history of nicotine dependence; Z66 Do not resuscitate; R57.0 Cardiogenic shock
CPT/HCPCS: 31622; 31623; 31720; 36415; 36569; 36600; 71010-TC; 76700-TC; 76770-TC; 80048-TC; 80053-TC; 80061-TC; 80076-TC; 81000-TC; 82550-TC; 82553-TC; 82570-TC; 82803-TC; 82962-TC; 83605-TC; 83735-TC; 83880; 84100-TC; 84300-TC; 84439-TC; 84443-TC; 84484-TC; 85025-TC; 85610-TC; 85730-TC; 87040-TC; 87070-TC; 87081-TC; 87400; 92526; 92611-TC; 92950-TC; 93307-TC; 94002-TC; 94003-TC; 94640-TC; 94760-TC; 94799-TC; A4216; A4606; A6403; C1751; C9113; J0171; J0282; J0330; J0461; J1644; J1720; J1815; J1940; J2060; J2185; J2370; J2543; J2930; J3370; J3475; J3480; J3490; J7030; J7040; J7050; J7060; Z7610